=== PATIENT | male | born 1940 | race Caucasian/White ===

== ENCOUNTER 2017-06-10 19:29 | Inpatient (IN) | payer OTHER ==
[~2017-06-10] VITALS: Ht 193 cm; Wt 115.8 kg
[2017-06-10 21:20] LABS: Basophils # (auto) 0.1 uL; Basophils % (auto) 1.3 % (0.0-2.0); Lymphocytes # (auto) 1.2 uL; Monocytes # (auto) 0.6 uL; Red Blood Cells 4.99 10^6/uL (4.5-5.90)
[2017-06-10 21:22] LABS: Eosinophils # (auto) 0.2 uL; Eosinophils % (auto) 2.2 % (0.0-7.0); Hematocrit 39.2 % (41.0-53.0); Hemoglobin 12.8 g/dL (13.5-17.5); Lymphocytes % (auto) 16.9 % (10.0-50.0); Mean Corpuscular Hemoglobin 25.7 pg (28.0-32.0); Mean Corpuscular Hgb Conc. 32.7 g/dL (32.0-36.0); Mean Corpuscular Volume 78.5 fL (80.0-100.0); Neutrophils # (auto) 4.9 uL; Neutrophils % (auto) 70.6 % (37.0-80.0); Platelet Count (auto) 202 10^3/uL (140-450); Red Cell Distribution Width 16.7 % (11.8-14.3); White Blood Cell 6.9 10^3/uL (4.4-10.8)
[2017-06-10 21:26] LABS: INR 1.06 (0.9-1.15); Partial Thromboplastin Time 22.8 sec (22.64-33.71); Prothrombin Time 11.6 sec (9.37-12.3)
[2017-06-10 21:31] LABS: Albumin 3.1 g/dL (3.4-5.0); BUN/Creatinine Ratio 20.9; Bilirubin, Total 0.2 mg/dL (0.2-1.0); Calcium 8.4 mg/dL (8.5-10.1); Potassium 4.5 mmol/L (3.5-5.1)
[2017-06-10] MEDS ORDERED: SODIUM CHLORIDE 0.9% 1,000 ML IV ONE (21:33)
[2017-06-11] VITALS (8 sets, daily range): BP systolic 106–196; BP diastolic 67–100
[2017-06-11] MEDS ORDERED: NITROGLYCERIN 0.4 MG SL TAB SL PRN (00:45)
[2017-06-11] MEDS ORDERED: DEXTROSE (50%) 50ML SYRG IV PRN ×2 (00:45→03:30)
[2017-06-11] MEDS ORDERED: MORPHINE SULF INJ 2 MG/ML SYRINGE 1ML IV PRN (00:45)
[2017-06-11] MEDS ORDERED: PANT1INJ3 PO (03:02)
[2017-06-11] MEDS ORDERED: CARV25TA55 PO (03:02)
[2017-06-11] MEDS ORDERED: ASPI81TA27 PO (03:02)
[2017-06-11] MEDS ORDERED: SIMV-8 PO (03:02)
[2017-06-11] MEDS ORDERED: WARF5TAB71 PO (03:02)
[2017-06-11] MEDS ORDERED: AMIO200T33 PO (03:02)
[2017-06-11] MEDS ORDERED: LOSA100T27 PO (03:02)
[2017-06-11] MEDS ORDERED: GLYB2.5T8 PO (03:02)
[2017-06-11] MEDS: cloNIDine HCL 0.1 MG TAB PO PRN ×2 (04:29→11:59)
[2017-06-11] MEDS ORDERED: ALBUAER3 IN (04:41)
[2017-06-11 06:17] LABS: Hemoglobin 11.1 g/dL (13.5-17.5); Lymphocytes # (auto) 1.3 uL; Monocytes # (auto) 0.7 uL; Neutrophils # (auto) 4.5 uL; Red Cell Distribution Width 16.8 % (11.8-14.3); White Blood Cell 6.7 10^3/uL (4.4-10.8)
[2017-06-11 06:23] LABS: Basophils # (auto) 0 uL; Basophils % (auto) 0.5 % (0.0-2.0); Eosinophils # (auto) 0.2 uL; Eosinophils % (auto) 2.4 % (0.0-7.0); Hematocrit 34.2 % (41.0-53.0); Mean Corpuscular Hemoglobin 25.5 pg (28.0-32.0); Mean Corpuscular Hgb Conc. 32.5 g/dL (32.0-36.0); Mean Corpuscular Volume 78.5 fL (80.0-100.0); Monocytes % (auto) 10.2 % (0.0-12.0); Neutrophils % (auto) 66.9 % (37.0-80.0); Platelet Count (auto) 163 10^3/uL (140-450); Red Blood Cells 4.35 10^6/uL (4.5-5.90)
[2017-06-11] MEDS ORDERED: hydrALAZINE HCL 20 MG/ML VL IV ONE (06:30)
[2017-06-11 06:39] LABS: Cholesterol 230 mg/dL (< 200); HDL Cholesterol 37 mg/dL (40-59); LDL Cholesterol 143 mg/dL (< 100); Triglycerides 325 mg/dL (< 150)
[2017-06-11 06:46] LABS: BUN/Creatinine Ratio 24.9; Calcium 8.2 mg/dL (8.5-10.1); Potassium 4.1 mmol/L (3.5-5.1)
[2017-06-11] MEDS: ACCU-CHEK COMFORT CURVE STRIP VI SCH ×3 (06:49→22:03)
[2017-06-11] MEDS ORDERED: ACCU-CHEK COMFORT CURVE STRIP VI SCH (07:00)
[2017-06-11] MEDS ORDERED: InsuLIN REG 1unit/0.01ml Soln (100units/ml) SC SCH (07:00)
[2017-06-11] MEDS: InsuLIN REG 1unit/0.01ml Soln (100units/ml) SC SCH ×3 (07:16→22:00)
[2017-06-11] MEDS ORDERED: DILTIAZEM HCL 25 MG/5 ML VIAL IV ONE (08:45)
[2017-06-11] MEDS ORDERED: METOPROLOL TARTRATE 25 MG TAB PO SCH (10:00)
[2017-06-11] MEDS: CARVEDILOL 12.5 MG TAB PO SCH ×2 (11:59→21:55)
[2017-06-11] MEDS: PANTOPRAZOLE 40 MG TAB PO SCH (11:59)
[2017-06-11] MEDS: AMIODARONE HCL 200 MG TAB PO SCH (12:02)
[2017-06-11] MEDS: LOSARTAN POTASSIUM 25 MG TAB PO SCH ×2 (12:02→21:53)
[2017-06-11] MEDS ORDERED: PHYTONADIONE (VIT K)10 MG/ML 1ML VIAL SUBCUT ONE (13:00)
[2017-06-11] MEDS: cloNIDine HCL 0.1 MG TAB PO SCH ×3 (13:48→22:53)
[2017-06-11] MEDS ORDERED: ATORVASTATIN 20 MG TAB PO SCH (22:00)
[2017-06-12 04:40] VITALS: BP 127/59
[2017-06-12 05:31] LABS: Basophils # (auto) 0.1 uL; Eosinophils # (auto) 0.1 uL; Lymphocytes # (auto) 1.1 uL; Neutrophils # (auto) 3.4 uL; Platelet Count (auto) 152 10^3/uL (140-450)
[2017-06-12 05:33] LABS: Basophils % (auto) 1.1 % (0.0-2.0); Eosinophils % (auto) 2.4 % (0.0-7.0); Hematocrit 31.1 % (41.0-53.0); Hemoglobin 10.2 g/dL (13.5-17.5); Lymphocytes % (auto) 20.5 % (10.0-50.0); Mean Corpuscular Hemoglobin 25.7 pg (28.0-32.0); Mean Corpuscular Volume 77.8 fL (80.0-100.0); Monocytes # (auto) 0.5 uL; Monocytes % (auto) 9.5 % (0.0-12.0); Neutrophils % (auto) 66.5 % (37.0-80.0); Red Blood Cells 3.99 10^6/uL (4.5-5.90); Red Cell Distribution Width 16.2 % (11.8-14.3); White Blood Cell 5.1 10^3/uL (4.4-10.8)
[2017-06-12] MEDS: ACCU-CHEK COMFORT CURVE STRIP VI SCH ×2 (06:33→11:30)
[2017-06-12] MEDS: InsuLIN REG 1unit/0.01ml Soln (100units/ml) SC SCH ×2 (06:34→11:30)
[2017-06-12 08:00] VITALS: BP 140/63
[2017-06-12 09:00] VITALS: BP 135/78
[2017-06-12] MEDS: CARVEDILOL 12.5 MG TAB PO SCH (10:00)
[2017-06-12] MEDS: PANTOPRAZOLE 40 MG TAB PO SCH (10:28)
[2017-06-12] MEDS: AMIODARONE HCL 200 MG TAB PO SCH (10:29)
[2017-06-12] MEDS: LOSARTAN POTASSIUM 25 MG TAB PO SCH (10:30)
[2017-06-12] MEDS ORDERED: AMLO10TA2 PO (12:47)
[2017-06-12 13:00] VITALS: BP 159/78
[2017-06-12] MEDS: cloNIDine HCL 0.1 MG TAB PO SCH (14:46)
== END 2017-06-12 15:00 | disposition home or self-care (01) | DRG 150 ==
LOC: EDBD 19:29 → ER 19:36 → TELE 19:37 → TELE-WESTW 06-11 01:35
PROVIDERS: ADMIT Nurse Practitioner Family; ATTEND Hospitalist
DX: R04.0 Epistaxis (principal); N17.0 Acute kidney failure with tubular necrosis; D68.32 Hemorrhagic disorder due to extrinsic circulating anticoagulants; I48.2 Chronic atrial fibrillation; E11.22 Type 2 diabetes mellitus with diabetic chronic kidney disease; N18.3 Chronic kidney disease, stage 3 (moderate); E11.9 Type 2 diabetes mellitus without complications; E66.9 Obesity, unspecified; E78.5 Hyperlipidemia, unspecified; I13.10 Hypertensive heart and chronic kidney disease without heart failure, with stage 1 through stage 4 chronic kidney disease, or unspecified chronic kidney disease; I25.10 Atherosclerotic heart disease of native coronary artery without angina pectoris; T45.515A Adverse effect of anticoagulants, initial encounter; Z79.01 Long term (current) use of anticoagulants; Z79.82 Long term (current) use of aspirin; Z79.899 Other long term (current) drug therapy; Y92.89 Other specified places as the place of occurrence of the external cause; Z68.31 Body mass index [BMI] 31.0-31.9, adult
CPT/HCPCS: 36415; 71010; 80048; 80053; 80061; 82962; 83036; 84484; 85025; 85379; 85610; 85730; 96361; 96374; 96375; J1815; J3430

== ENCOUNTER 2019-12-04 10:28 | Inpatient (IN) | payer OTHER, MEDICAID ==
[~2019-12-04] VITALS: Ht 193 cm; Wt 106.1 kg
[~2019-12-04 10:28] MED LIST: ALBUAER3 IN; AMIO200T33 PO; AML5T PO; ASPI325T4 PO; CALC667C5 PO; CARV25TA55 PO; CHOL400L8 PO; DONE10TA40 PO; FURO40TA4 PO; INSLANTI SC; IPRIH IN; PANT1INJ3 PO; SIMV-8 PO; WARF3TAB22 PO
[2019-12-04] MEDS ORDERED: FUROSEMIDE 40 MG/4 ML VIAL IV ONE (10:45)
[2019-12-04] MEDS ORDERED: cefTRIAXone 1GM/50ML D5W 50 ML IV ONE (10:45)
[2019-12-04] MEDS ORDERED: AZITHROMYCIN 500MG/ 250ML 250 ML IV ONE (10:45)
[2019-12-04] MEDS ORDERED: FUROSEMIDE 40 MG/4 ML VIAL ONE (10:46)
[2019-12-04 11:24] LABS: Basophils # (auto) 0.1 10 ^3/uL (0-0.2); Hemoglobin 7.5 g/dL (13.5-17.5); Lymphocytes # (auto) 0.9 10 ^3/uL (0.4-5.4); White Blood Cell 10.3 10^3/uL (4.4-10.8)
[2019-12-04 11:26] LABS: Basophils % (auto) 0.9 % (0.0-2.0); Eosinophils # (auto) 0.1 10 ^3/uL (0-0.8); Eosinophils % (auto) 0.5 % (0.0-7.0); Hematocrit 23.1 % (41.0-53.0); Lymphocytes % (auto) 8.4 % (10.0-50.0); Mean Corpuscular Hemoglobin 26.8 pg (28.0-32.0); Mean Corpuscular Hgb Conc. 32.5 g/dL (32.0-36.0); Mean Corpuscular Volume 82.6 fL (80.0-100.0); Monocytes # (auto) 0.7 10 ^3/uL (0-1.3); Monocytes % (auto) 6.8 % (0.0-12.0); Neutrophils # (auto) 8.6 10 ^3/uL (1.6-8.6); Neutrophils % (auto) 83.4 % (37.0-80.0); Nucleated Red Blood Cells % 0.5 %; Platelet Count (auto) 175 10^3/uL (140-450); Red Cell Distribution Width 19.3 % (11.8-14.3)
[2019-12-04 11:41] LABS: Albumin 2.9 g/dL (3.4-5.0); Calcium 8.7 mg/dL (8.5-10.1); Magnesium 2.7 mg/dL (1.6-2.6); Potassium 4.7 mmol/L (3.5-5.1)
[2019-12-04 11:48] LABS: BUN/Creatinine Ratio 21.4; Bilirubin, Total 0.3 mg/dL (0.2-1.0); CRP High Sensitivity 1.57 mg/dL (< 0.3); Total Protein 7.2 g/dL (6.4-8.2)
[2019-12-04] MEDS ORDERED: FUROSEMIDE 20 MG/2 ML VIAL IV ONE ×2 (14:00→14:30)
[2019-12-04] MEDS ORDERED: NITROGLYCERIN 0.4 MG SL TAB SL PRN (14:15)
[2019-12-04] MEDS ORDERED: MORPHINE SULF INJ 2 MG/ML SYRINGE 1ML IV PRN (14:15)
[2019-12-04] MEDS ORDERED: HEPARIN DRIP/D5W 100UNITS/ML 250 ML IV SCH (14:23)
[2019-12-04] MEDS ORDERED: HEPARIN SODIUM (PORCINE) 5000 UNITS/ML 1ML VIAL IV ONE (15:00)
[2019-12-04 15:36] LABS: INR 2.3 (0.9-1.15); Partial Thromboplastin Time 22.5 sec (23.64-32.05)
[2019-12-04] MEDS ORDERED: HEPARIN SODIUM (PORCINE) 5000 UNITS/ML 1ML VIAL ONE (16:19)
[2019-12-04] MEDS: HEPARIN DRIP/D5W 100UNITS/ML 250 ML IV SCH (16:30)
[2019-12-04 18:00] VITALS: BP 111/69
[2019-12-04] MEDS: FUROSEMIDE 100 MG/10ML VIAL IV SCH (18:00)
[2019-12-04 18:15] VITALS: BP 122/66
[2019-12-04] MEDS ORDERED: DEXTROSE (50%) 50ML SYRG IV PRN (20:15)
[2019-12-04 20:36] LABS: Urine Bacteria NONE SEEN /hpf (None Seen); Urine Blood 1+ /uL (Negative); Urine Hyaline Cast FEW /lpf (0 - 2); Urine Specific Gravity 1.013 (1.001-1.035); Urine WBC <1 /hpf (0 - 3)
[2019-12-04 22:00] VITALS: BP 166/69
[2019-12-04] MEDS ORDERED: ATORVASTATIN 20 MG TAB PO SCH (22:00)
[2019-12-04] MEDS: DONEPEZIL HYDROCHLORIDE 5 MG TAB PO SCH (23:11)
[2019-12-04] MEDS: CARVEDILOL 12.5 MG TAB PO SCH (23:12)
[2019-12-04] MEDS: ATORVASTATIN 20 MG TAB PO SCH (23:12)
[2019-12-04] MEDS: DOXYCYCLINE 100 MG TAB/CAP PO SCH (23:12)
[2019-12-04] MEDS: ACCU-CHEK COMFORT CURVE STRIP VI SCH (23:13)
[2019-12-04] MEDS: InsuLIN REG 1unit/0.01ml Soln (100units/ml) SC SCH (23:18)
[2019-12-04 23:28] LABS: Basophils # (auto) 0.1 10 ^3/uL (0-0.2); Basophils % (auto) 1.4 % (0.0-2.0); Eosinophils # (auto) 0.1 10 ^3/uL (0-0.8); Eosinophils % (auto) 0.7 % (0.0-7.0); Hematocrit 24.1 % (41.0-53.0); Hemoglobin 7.9 g/dL (13.5-17.5); Lymphocytes % (auto) 9.4 % (10.0-50.0); Mean Corpuscular Hemoglobin 26.7 pg (28.0-32.0); Mean Corpuscular Hgb Conc. 32.7 g/dL (32.0-36.0); Mean Corpuscular Volume 81.7 fL (80.0-100.0); Monocytes # (auto) 0.9 10 ^3/uL (0-1.3); Monocytes % (auto) 8.8 % (0.0-12.0); Neutrophils # (auto) 8.3 10 ^3/uL (1.6-8.6); Neutrophils % (auto) 79.7 % (37.0-80.0); Nucleated Red Blood Cells % 0.8 %; Platelet Count (auto) 176 10^3/uL (140-450); Red Blood Cells 2.95 10^6/uL (4.5-5.90); Red Cell Distribution Width 19.3 % (11.8-14.3); White Blood Cell 10.4 10^3/uL (4.4-10.8)
[2019-12-04 23:34] LABS: BUN/Creatinine Ratio 22.5; Calcium 8.3 mg/dL (8.5-10.1); Magnesium 2.7 mg/dL (1.6-2.6); Potassium 4.8 mmol/L (3.5-5.1)
[2019-12-04 23:35] LABS: % Iron Saturation 7.8 % (20-55)
[2019-12-04 23:36] LABS: INR 2.46 (0.9-1.15); Partial Thromboplastin Time 35.9 sec (23.64-32.05)
[2019-12-05] MEDS: ALBUTEROL SULF 2.5 MG/0.5ML(0.5%) NEB SOLN NEB PRN ×2 (00:56→06:37)
[2019-12-05] MEDS: IPRATROPIUM BROM 0.5 MG/2.5ML INH SOL NEB PRN ×2 (00:56→06:37)
[2019-12-05 04:22] VITALS: BP 128/78
[2019-12-05] MEDS: FUROSEMIDE 100 MG/10ML VIAL IV SCH ×2 (06:29→18:15)
[2019-12-05] MEDS: InsuLIN REG 1unit/0.01ml Soln (100units/ml) SC SCH ×4 (06:38→22:50)
[2019-12-05] MEDS: ACCU-CHEK COMFORT CURVE STRIP VI SCH ×4 (07:00→22:50)
[2019-12-05 07:17] LABS: Calcium 8.3 mg/dL (8.5-10.1); Magnesium 2.8 mg/dL (1.6-2.6)
[2019-12-05 07:19] LABS: INR 2.54 (0.9-1.15); Partial Thromboplastin Time 44.7 sec (23.64-32.05)
[2019-12-05 07:20] LABS: Basophils # (auto) 0.1 10 ^3/uL (0-0.2); Basophils % (auto) 0.9 % (0.0-2.0); Eosinophils # (auto) 0.1 10 ^3/uL (0-0.8); Eosinophils % (auto) 0.6 % (0.0-7.0); Hematocrit 23.2 % (41.0-53.0); Hemoglobin 7.7 g/dL (13.5-17.5); Lymphocytes # (auto) 0.7 10 ^3/uL (0.4-5.4); Lymphocytes % (auto) 8.2 % (10.0-50.0); Mean Corpuscular Hemoglobin 27.2 pg (28.0-32.0); Mean Corpuscular Volume 82.4 fL (80.0-100.0); Monocytes # (auto) 0.6 10 ^3/uL (0-1.3); Monocytes % (auto) 7.5 % (0.0-12.0); Neutrophils % (auto) 82.8 % (37.0-80.0); Nucleated Red Blood Cells % 0.5 %; Platelet Count (auto) 148 10^3/uL (140-450); Red Blood Cells 2.82 10^6/uL (4.5-5.90); White Blood Cell 8.5 10^3/uL (4.4-10.8)
[2019-12-05 07:22] LABS: BUN/Creatinine Ratio 23.1
[2019-12-05] MEDS ORDERED: CARVEDILOL 12.5 MG TAB ONE (08:22)
[2019-12-05] MEDS ORDERED: CARVEDILOL 3.125 MG TAB ONE (08:23)
[2019-12-05] MEDS: AMIODARONE HCL 200 MG TAB PO SCH (08:29)
[2019-12-05] MEDS: CARVEDILOL 12.5 MG TAB PO SCH ×2 (08:30→22:46)
[2019-12-05] MEDS: CLOPIDOGREL BISULFATE 75 MG TAB PO SCH (08:30)
[2019-12-05] MEDS: PANTOPRAZOLE 40 MG TAB PO SCH (08:30)
[2019-12-05] MEDS: DOXYCYCLINE 100 MG TAB/CAP PO SCH ×2 (08:30→22:46)
[2019-12-05] MEDS: cefTRIAXone 1GM/50ML D5W 50 ML IV SCH (08:36)
[2019-12-05] MEDS ORDERED: metOLazone 5 MG TAB PO ONE (09:45)
[2019-12-05] MEDS ORDERED: ASPirin 81 mg TAB PO SCH (10:00)
[2019-12-05] MEDS: IRON SUCROSE COMPLEX 200 MG in SODIUM CHL 0.9% 100 ML IV SCH (10:28)
[2019-12-05] MEDS ORDERED: INSLANTI SC (11:22)
[2019-12-05] MEDS ORDERED: DOCU-94 PO (11:22)
[2019-12-05] MEDS ORDERED: FERR-7 PO (11:22)
[2019-12-05] MEDS ORDERED: LORA-622 PO (11:22)
[2019-12-05] MEDS ORDERED: HYDR-5139 PO (11:22)
[2019-12-05] MEDS ORDERED: FURO40TA4 PO (11:22)
[2019-12-05] MEDS ORDERED: METO-6 PO (11:22)
[2019-12-05] MEDS ORDERED: PANT-36 PO (11:22)
[2019-12-05] MEDS: SEVELAMER 800 MG TAB PO SCH ×2 (12:00→18:15)
[2019-12-05 12:56] LABS: INR 2.64 (0.9-1.15); Partial Thromboplastin Time 66.3 sec (23.64-32.05)
[2019-12-05] MEDS: HEPARIN DRIP/D5W 100UNITS/ML 250 ML IV SCH (15:18)
[2019-12-05] MEDS ORDERED: VANCOMYCIN 750mg/250ml 250 ML IV ONE (16:00)
[2019-12-05 18:47] LABS: Hematocrit 24.5 % (41.0-53.0); Hemoglobin 7.9 g/dL (13.5-17.5)
[2019-12-05 19:03] LABS: INR 2.48 (0.9-1.15)
[2019-12-05] MEDS: DONEPEZIL HYDROCHLORIDE 5 MG TAB PO SCH (22:45)
[2019-12-05] MEDS: ATORVASTATIN 20 MG TAB PO SCH (22:46)
[2019-12-06 01:32] LABS: INR 2.55 (0.9-1.15)
[2019-12-06 01:39] LABS: Basophils # (auto) 0.1 10 ^3/uL (0-0.2); Mean Corpuscular Hemoglobin 26.8 pg (28.0-32.0); Monocytes # (auto) 0.8 10 ^3/uL (0-1.3); Red Blood Cells 2.71 10^6/uL (4.5-5.90)
[2019-12-06 01:40] LABS: Eosinophils # (auto) 0.1 10 ^3/uL (0-0.8); Eosinophils % (auto) 1.5 % (0.0-7.0); Hematocrit 22.3 % (41.0-53.0); Hemoglobin 7.2 g/dL (13.5-17.5); Lymphocytes # (auto) 1.2 10 ^3/uL (0.4-5.4); Lymphocytes % (auto) 12.8 % (10.0-50.0); Mean Corpuscular Hgb Conc. 32.6 g/dL (32.0-36.0); Mean Corpuscular Volume 82.2 fL (80.0-100.0); Monocytes % (auto) 8.8 % (0.0-12.0); Neutrophils # (auto) 6.9 10 ^3/uL (1.6-8.6); Neutrophils % (auto) 75.9 % (37.0-80.0); Nucleated Red Blood Cells % 1.2 %; Platelet Count (auto) 164 10^3/uL (140-450); White Blood Cell 9.1 10^3/uL (4.4-10.8)
[2019-12-06 01:44] LABS: BUN/Creatinine Ratio 21.5; Calcium 7.6 mg/dL (8.5-10.1); Phosphorus 6.5 mg/dL (2.5-4.90); Potassium 4.4 mmol/L (3.5-5.1)
[2019-12-06] MEDS ORDERED: HYDROcodone-ACET 5/325MG TAB PO ONE (05:30)
[2019-12-06] MEDS: FUROSEMIDE 100 MG/10ML VIAL IV SCH ×2 (06:00→17:31)
[2019-12-06] MEDS: ACCU-CHEK COMFORT CURVE STRIP VI SCH ×4 (07:04→22:00)
[2019-12-06] MEDS: InsuLIN REG 1unit/0.01ml Soln (100units/ml) SC SCH ×4 (07:07→22:00)
[2019-12-06 07:19] LABS: INR 2.5 (0.9-1.15)
[2019-12-06] MEDS: SEVELAMER 800 MG TAB PO SCH ×3 (08:00→18:21)
[2019-12-06] MEDS ORDERED: MIDODRINE HCL 10 MG TAB PO ONE (08:30)
[2019-12-06] MEDS ORDERED: SODIUM CHL 0.9% 1000 ML BAG XX ONE (08:30)
[2019-12-06] MEDS ORDERED: ALBUMIN 25% 100 ML IV ONE (08:30)
[2019-12-06] MEDS: PANTOPRAZOLE 40 MG TAB PO SCH (11:48)
[2019-12-06] MEDS: AMIODARONE HCL 200 MG TAB PO SCH (11:48)
[2019-12-06] MEDS: DOXYCYCLINE 100 MG TAB/CAP PO SCH ×2 (11:48→22:00)
[2019-12-06] MEDS: cefTRIAXone 1GM/50ML D5W 50 ML IV SCH (11:48)
[2019-12-06] MEDS: CLOPIDOGREL BISULFATE 75 MG TAB PO SCH (11:49)
[2019-12-06] MEDS: CARVEDILOL 12.5 MG TAB PO SCH ×2 (11:49→22:00)
[2019-12-06] MEDS: IRON SUCROSE COMPLEX 200 MG in SODIUM CHL 0.9% 100 ML IV SCH (12:54)
[2019-12-06] MEDS: NOREPINEPHRINE 8 MG/250ML KIT 250 ML IV ONE ×2 (14:27→14:31)
[2019-12-06] MEDS: NOREPINEPHRINE 8 MG/250ML KIT 250 ML IV SCH (14:37)
--- NOTE | 2019-12-06 18:30 | NUR ---
Respiratory note: PT ASSESSED FOR PRN MED NEB TX. HR 64, RR 17, SPO2 100% ON 5L OXYMIZER. NO S/S OF ANY RESPIRATORY DISTRESS NOTED. ADVISED PT TO CALL IF TX IS NEEDED.
[2019-12-06] MEDS ORDERED: EPOETIN ALFA 10,000 UNIT/1 ML VIAL SC ONE (21:00)
[2019-12-06] MEDS: ATORVASTATIN 20 MG TAB PO SCH (22:00)
[2019-12-06] MEDS: DONEPEZIL HYDROCHLORIDE 5 MG TAB PO SCH (22:00)
[2019-12-07] MEDS: FUROSEMIDE 100 MG/10ML VIAL IV SCH ×2 (06:00→18:53)
--- NOTE | 2019-12-07 06:05 | NUR ---
Respiratory note: Assessed pt for prn medneb tx. HR 59, RR 14, SPO2 97% on 6lpm oxymizer. Breath sounds clear/dim. Pt resting comfortably in bed, no s/s of respiratory distress noted. Medneb tx not indicated at this time.
[2019-12-07 06:25] LABS: BUN/Creatinine Ratio 20.3; Calcium 7.6 mg/dL (8.5-10.1); Magnesium 2.4 mg/dL (1.6-2.6); Potassium 4.1 mmol/L (3.5-5.1)
[2019-12-07 06:43] LABS: Basophils # (auto) 0.1 10 ^3/uL (0-0.2); Eosinophils # (auto) 0.1 10 ^3/uL (0-0.8); Eosinophils % (auto) 1.8 % (0.0-7.0); Hematocrit 22.5 % (41.0-53.0); Hemoglobin 7.1 g/dL (13.5-17.5); Lymphocytes # (auto) 0.8 10 ^3/uL (0.4-5.4); Lymphocytes % (auto) 10.6 % (10.0-50.0); Mean Corpuscular Hemoglobin 25.8 pg (28.0-32.0); Mean Corpuscular Hgb Conc. 31.4 g/dL (32.0-36.0); Mean Corpuscular Volume 81.9 fL (80.0-100.0); Monocytes # (auto) 0.8 10 ^3/uL (0-1.3); Monocytes % (auto) 10.6 % (0.0-12.0); Neutrophils # (auto) 5.6 10 ^3/uL (1.6-8.6); Platelet Count (auto) 157 10^3/uL (140-450); Red Blood Cells 2.75 10^6/uL (4.5-5.90); Red Cell Distribution Width 18.8 % (11.8-14.3); White Blood Cell 7.3 10^3/uL (4.4-10.8)
[2019-12-07] MEDS: ACCU-CHEK COMFORT CURVE STRIP VI SCH ×4 (07:00→22:29)
[2019-12-07] MEDS: InsuLIN REG 1unit/0.01ml Soln (100units/ml) SC SCH ×4 (07:00→22:43)
[2019-12-07] MEDS ORDERED: SODIUM CHL 0.9% 1000 ML BAG XX ONE (08:15)
[2019-12-07] MEDS ORDERED: ALBUMIN 25% 100 ML IV ONE ×2 (08:15)
[2019-12-07] MEDS: SEVELAMER 800 MG TAB PO SCH ×3 (09:03→18:38)
[2019-12-07] MEDS: AMIODARONE HCL 200 MG TAB PO SCH (10:14)
[2019-12-07] MEDS: cefTRIAXone 1GM/50ML D5W 50 ML IV SCH (10:14)
[2019-12-07] MEDS: CARVEDILOL 12.5 MG TAB PO SCH ×2 (10:14→22:00)
[2019-12-07] MEDS: PANTOPRAZOLE 40 MG TAB PO SCH (10:15)
[2019-12-07] MEDS: CLOPIDOGREL BISULFATE 75 MG TAB PO SCH (10:15)
[2019-12-07] MEDS: DOXYCYCLINE 100 MG TAB/CAP PO SCH ×2 (10:15→22:29)
[2019-12-07 10:46] LABS: Hepatitis A Ab IgM Negative; Hepatitis B Core IgM Negative; Hepatitis B Surface Antigen Negative (Negative)
[2019-12-07 10:48] LABS: Hepatitis C Antibody Positive (Negative)
--- NOTE | 2019-12-07 11:28 | NUR ---
Assessment Patient is a 79-year-old male who is alert and oriented. Prior to admission patient lived home with his and functioned independently. Patient informed me he has home oxygen, walker and a wheelchair for home use. Per patient he will return home to his prior living arrangements post discharge and will transport him home. Advised patient there is a social service consult for outpatient dialysis. Informed patient clinical information will be faxed to [facility]. Informed Patient he has the right to participate in all discharge planning. Patient verbalized understanding and agreed to discharge plan. Faxed clinical information to [facility] dialysis on 12/06/2019. Pending on Hepatitis B. Faxed clinical information to [facility] and DANIEL Sunshine was informed of order for dialysis. Addendum: 12/07/19 at 1130 by JAMES ECHEVARRIA Amended: Links added.
[2019-12-07] MEDS ORDERED: MIDODRINE HCL 10 MG TAB PO ONE (14:15)
[2019-12-07] MEDS: IRON SUCROSE COMPLEX 200 MG in SODIUM CHL 0.9% 100 ML IV SCH (15:44)
[2019-12-07] MEDS: NOREPINEPHRINE 8 MG/250ML KIT 250 ML IV SCH (15:44)
[2019-12-07 19:31] VITALS: BP 116/52
[2019-12-07 20:00] VITALS: BP 105/66
[2019-12-07] MEDS ORDERED: EPOETIN ALFA 10,000 UNIT/1 ML VIAL SC ONE (21:00)
[2019-12-07] MEDS: ATORVASTATIN 20 MG TAB PO SCH (22:29)
[2019-12-07] MEDS: DONEPEZIL HYDROCHLORIDE 5 MG TAB PO SCH (22:29)
[2019-12-08] MEDS: FUROSEMIDE 100 MG/10ML VIAL IV SCH ×3 (06:00→18:00)
--- NOTE | 2019-12-08 06:45 | NUR ---
Respiratory note: PT IS AWAKE, AND ALERT. NO RESPIRATORY DISTRESS NOTED. SPO2 97% ON 3L NC, HR 62, RR 16, BS CLEAR/DIMINISHED BILATERALLY. PRN MEDNEB TX NOT INDICATED. PT INFORMED TO HAVE RN PAGE RESPIRATORY IF INCREASE WOB, SOB, OR WHEEZING OCCURS.
[2019-12-08] MEDS: ACCU-CHEK COMFORT CURVE STRIP VI SCH ×4 (06:52→22:18)
[2019-12-08] MEDS: InsuLIN REG 1unit/0.01ml Soln (100units/ml) SC SCH ×4 (06:53→22:18)
[2019-12-08 07:06] LABS: Potassium 4.1 mmol/L (3.5-5.1)
[2019-12-08 07:07] LABS: BUN/Creatinine Ratio 16.6; Calcium 7.5 mg/dL (8.5-10.1)
[2019-12-08] MEDS: SEVELAMER 800 MG TAB PO SCH ×3 (08:12→18:15)
[2019-12-08] MEDS ORDERED: HEPARIN 1,000 UNITS/ml 1ML VIAL IV ONE (09:15)
[2019-12-08] MEDS ORDERED: ALBUMIN 25% 50 ML IV ONE (09:15)
[2019-12-08] MEDS ORDERED: ALBUMIN 25% 50 ML IV PRN (09:15)
[2019-12-08] MEDS: AMIODARONE HCL 200 MG TAB PO SCH (11:07)
[2019-12-08] MEDS: PANTOPRAZOLE 40 MG TAB PO SCH (11:08)
[2019-12-08] MEDS: CLOPIDOGREL BISULFATE 75 MG TAB PO SCH (11:08)
[2019-12-08] MEDS: CARVEDILOL 12.5 MG TAB PO SCH ×2 (11:18→22:00)
[2019-12-08] MEDS: cefTRIAXone 1GM/50ML D5W 50 ML IV SCH (11:31)
[2019-12-08] MEDS: DOXYCYCLINE 100 MG TAB/CAP PO SCH ×2 (11:52→22:01)
[2019-12-08] MEDS: SODIUM FERR GLUC 125 MG in NS 100 ML IV SCH (12:38)
[2019-12-08] MEDS ORDERED: SODIUM FERR GLUC 125 MG in NS 100 ML IV SCH (15:00)
[2019-12-08] MEDS ORDERED: IRON SUCROSE COMPLEX 200 MG in SODIUM CHL 0.9% 100 ML IV SCH (15:00)
[2019-12-08] MEDS ORDERED: EPOETIN ALFA 10,000 UNIT/1 ML VIAL SC ONE ×2 (15:00→21:00)
--- NOTE | 2019-12-08 15:37 | NUR ---
D/C Planning Per SS consult for home health safety evaluation. Faxed clinical information with Hepatitis B results to [facility] and [facility] this morning. Faxed clinical information to [facility]. Per Pennie with [facility] health patient has been accepted and service to start within 24-48hrs upon d/c day. Placed follow up call to DANIEL Sunshine with [facility] and left her a message regarding results and accepting home health agency. Placed called to [facility] spoke to Prachi. Per Prachi patient Chair Time will be on Wednesday, and Wednesday at 10:30am at [facility] [id number], [facility] ). Patient first treatment will be on 12-12-19 at 10:00am for intake. BRANDIE Pagan from ER was informed regarding discharge plan.
[2019-12-08 15:53] LABS: Basophils # (auto) 0.1 10 ^3/uL (0-0.2); Eosinophils # (auto) 0.1 10 ^3/uL (0-0.8); Eosinophils % (auto) 1.3 % (0.0-7.0); Hemoglobin 7.8 g/dL (13.5-17.5); Lymphocytes # (auto) 0.6 10 ^3/uL (0.4-5.4); Mean Corpuscular Volume 84.7 fL (80.0-100.0); Monocytes # (auto) 0.7 10 ^3/uL (0-1.3); Neutrophils # (auto) 6.4 10 ^3/uL (1.6-8.6)
[2019-12-08 15:55] LABS: Basophils % (auto) 0.9 % (0.0-2.0); Hematocrit 24.5 % (41.0-53.0); Lymphocytes % (auto) 7.5 % (10.0-50.0); Mean Corpuscular Hemoglobin 27.1 pg (28.0-32.0); Neutrophils % (auto) 81.3 % (37.0-80.0); Nucleated Red Blood Cells % 0.5 %; Platelet Count (auto) 153 10^3/uL (140-450); Red Blood Cells 2.89 10^6/uL (4.5-5.90); Red Cell Distribution Width 19.3 % (11.8-14.3); White Blood Cell 7.8 10^3/uL (4.4-10.8)
--- NOTE | 2019-12-08 18:28 | NUR ---
Respiratory note: ASSESSED PT FOR PRN MED NEB TX. PT IS CURRENTLY ON 3 L/M NC: HR 67, RR 18, SPO2 97%. PT SHOWS NO S/S OF SOB OR RESPIRATORY DISTRESS. MED NEB TX NOT INDICATED AT THIS TIME. WILL CONTINUE TO MONITOR
[2019-12-08 20:00] VITALS: BP 111/69
--- NOTE | 2019-12-08 20:30 | NUR ---
Telemetry admit from ER RHIANNON DELAROSA admitted to Telemetry unit after SBAR received. Patient oriented to Dariela Diallo RN primary RN, unit, room, bed, and unit policies regarding patient care and visiting hours. Patient now on continuous telemetry monitoring, tele box # [id number] and telemetry reading on arrival to unit is SR. Patient placed on bedside oxygen at 3 Lpm/NC, weighed by bedscale and encouraged to call if they need something. All questions and concerns addressed, patient verbalized understanding, will continue to monitor Note: []
[2019-12-08 22:00] VITALS: BP 111/69
[2019-12-08] MEDS: DONEPEZIL HYDROCHLORIDE 5 MG TAB PO SCH (22:01)
[2019-12-08] MEDS: ATORVASTATIN 20 MG TAB PO SCH (22:02)
--- NOTE | 2019-12-09 05:19 | NUR ---
Noted diabetic wound on left 5th toe, dry and blackened present upon admission. Pictures taken for reference, wound consult in place.
[2019-12-09 05:30] VITALS: BP 121/86
[2019-12-09] MEDS: FUROSEMIDE 100 MG/10ML VIAL IV SCH ×2 (05:35→17:48)
[2019-12-09] MEDS: InsuLIN REG 1unit/0.01ml Soln (100units/ml) SC SCH ×4 (06:17→22:33)
[2019-12-09] MEDS: ACCU-CHEK COMFORT CURVE STRIP VI SCH ×4 (06:17→22:31)
[2019-12-09 06:50] LABS: Albumin 3.1 g/dL (3.4-5.0); BUN/Creatinine Ratio 15.9; Calcium 7.3 mg/dL (8.5-10.1); Potassium 3.8 mmol/L (3.5-5.1)
[2019-12-09 07:03] LABS: Bilirubin, Total 0.4 mg/dL (0.2-1.0); Total Protein 6.8 g/dL (6.4-8.2)
--- NOTE | 2019-12-09 07:15 | NUR ---
RT NOTE: NO TX INDICATED AT THIS TIME. NO SIGNS OF RESPIRATORY DISTRESS. LUNG SOUNDS CLEAR/DIMINISHED T/O. ON 3L NC SPO2 98 HR 60 RR 16. PT AWARE TO PAGE FOR RESPIRATORY IF NEED FOR TX ARISES. WILL CONTINUE TO MONITOR.
[2019-12-09 09:24] VITALS: BP 145/71
[2019-12-09] MEDS: SEVELAMER 800 MG TAB PO SCH ×3 (10:05→17:49)
[2019-12-09] MEDS: B-COMPLEX W/ C & FOLIC ACID(NEPHROVITE TAB) PO SCH (10:06)
[2019-12-09] MEDS: PANTOPRAZOLE 40 MG TAB PO SCH (10:07)
[2019-12-09] MEDS: CARVEDILOL 12.5 MG TAB PO SCH ×2 (10:07→21:33)
[2019-12-09] MEDS: DOXYCYCLINE 100 MG TAB/CAP PO SCH ×2 (10:07→21:43)
[2019-12-09] MEDS: AMIODARONE HCL 200 MG TAB PO SCH (10:08)
[2019-12-09] MEDS: cefTRIAXone 1GM/50ML D5W 50 ML IV SCH (10:09)
--- NOTE | 2019-12-09 11:55 | NUR ---
WOUND CARE NOTE: WOUND CONSULT ORDERED FOR PATIENT FOR DFU TO LEFT # 5 TOE. PATIENT ADMITTED TO [facility] WITH DIAGNOSIS OF NSTEMI, ACUTE CHF. HE HAS HISTORY WITH DM. CURRENT IRIS SCORE IS 17. SKIN/WOUND CARE PLAN IMPLEMENTED. PATIENT HAS SMALL DFU/NEUROPATHIC ULCER COVERED WITH HARD BLACK STABLE ESCHAR TO DORSAL # 5 TOE ON LEFT FOOT. NO NEED FOR DRESSINGS NEEDED. PATIENT SHOULD OBTAIN A REFERRAL TO SEE A CASING COOKER THROUGH HIS [facility] AN OUT PATIENT. NO WOUND CARE MONITORING NEEDED AT THIS TIME.
[2019-12-09 13:00] VITALS: BP 125/71
--- NOTE | 2019-12-09 13:14 | NUR ---
CALLED LAB FOR STAT BLOOD DRAW, LAB REPORTS THEY ARE BACKED UP BUT WILL NOTIFY TIE SAWYER. DR PRICE SAW PATIENT AND DISCUSSED POC. REPORTS TO KEEP NG TUBE, AND KEEP CLAMPED FOR NOW UNTIL SWALLOW EVAL DONE. HE REPORTS THE GASTRIC DRAINAGE IN CANISTER IS BILE, NOT BLOOD. Addendum: 12/09/19 at 1321 by JAC JORGENSEN RN WRONG PATIENT
[2019-12-09] MEDS ORDERED: ALUM & MAG HYDROX-SIMETH LIQ(MAALOX) 30 ML PO PRN (13:30)
--- NOTE | 2019-12-09 13:50 | NUR ---
Tele called and reported pt hr in the 50's. spoke with Dr Cordero, notified MD. reports Coreg can be held and to interrogate pacemaker, and new orders for labs.
--- NOTE | 2019-12-09 14:02 | NUR ---
SPOKE WITH PATIENT, HE REPORTS HE DOES NOT HAVE HIS PACEMAKER CARD OR INFO. HE REPORTS IT WAS PUT IN 6-7 YRS AGO IN [place]. HE REPORTS TO CALL DR PALMER WHO IS HIS COVERED BUCKLE ASSEMBLER. CALLED DR PALMER'S OFFICE, PAGED DR PALMER TO NOTIFY MD PATIENT MAY NEED PACEMAKER INTERROGATED.
--- NOTE | 2019-12-09 14:17 | NUR ---
DR WAHL CALLED BACK FOR DR PALMER. NOTIFIED PT HR HAS GONE INTO THE 50'S AND PACEMAKER IS NOT PACING. AWARE. MD REPORTS TO HAVE PACEMAKER INTERROGATED IF HR DROPS BELOW 50.
[2019-12-09] MEDS: SODIUM FERR GLUC 125 MG in NS 100 ML IV SCH (16:38)
[2019-12-09 16:58] VITALS: BP 109/74
[2019-12-09] MEDS: ATORVASTATIN 20 MG TAB PO SCH (21:43)
[2019-12-09] MEDS: DONEPEZIL HYDROCHLORIDE 5 MG TAB PO SCH (21:43)
[2019-12-09 22:00] VITALS: BP 135/72
[2019-12-10 05:00] VITALS: BP 127/65
[2019-12-10 06:21] LABS: Basophils # (auto) 0.1 10 ^3/uL (0-0.2); Eosinophils # (auto) 0.2 10 ^3/uL (0-0.8); Monocytes # (auto) 0.8 10 ^3/uL (0-1.3); Neutrophils # (auto) 4.8 10 ^3/uL (1.6-8.6)
[2019-12-10 06:24] LABS: Basophils % (auto) 0.9 % (0.0-2.0); Eosinophils % (auto) 2.4 % (0.0-7.0); Hematocrit 24.6 % (41.0-53.0); Lymphocytes # (auto) 0.8 10 ^3/uL (0.4-5.4); Lymphocytes % (auto) 12.4 % (10.0-50.0); Mean Corpuscular Hemoglobin 27.6 pg (28.0-32.0); Mean Corpuscular Hgb Conc. 32.7 g/dL (32.0-36.0); Mean Corpuscular Volume 84.5 fL (80.0-100.0); Monocytes % (auto) 11.4 % (0.0-12.0); Neutrophils % (auto) 72.9 % (37.0-80.0); Nucleated Red Blood Cells % 0.3 %; Platelet Count (auto) 162 10^3/uL (140-450); Red Blood Cells 2.91 10^6/uL (4.5-5.90); White Blood Cell 6.6 10^3/uL (4.4-10.8)
[2019-12-10] MEDS: FUROSEMIDE 100 MG/10ML VIAL IV SCH ×3 (06:42→11:21)
[2019-12-10] MEDS: ACCU-CHEK COMFORT CURVE STRIP VI SCH ×4 (06:56→21:55)
[2019-12-10] MEDS: InsuLIN REG 1unit/0.01ml Soln (100units/ml) SC SCH ×4 (06:56→22:22)
[2019-12-10 07:06] LABS: Potassium 3.6 mmol/L (3.5-5.1)
[2019-12-10 07:19] LABS: Albumin 3.3 g/dL (3.4-5.0); BUN/Creatinine Ratio 17.2; Bilirubin, Total 0.2 mg/dL (0.2-1.0); Calcium 8.3 mg/dL (8.5-10.1); Magnesium 2.3 mg/dL (1.6-2.6); Total Protein 6.9 g/dL (6.4-8.2)
--- NOTE | 2019-12-10 07:45 | NUR ---
IV insertion IV access obtained, via clean sterile technique by inserting 22 gauge catheter at left wrist after 2 attempts. IV secured properly. No trauma to site. Patient tolerated well.
[2019-12-10 09:00] VITALS: BP 107/44
[2019-12-10] MEDS: CARVEDILOL 12.5 MG TAB PO SCH ×2 (10:00→21:43)
[2019-12-10] MEDS: DOXYCYCLINE 100 MG TAB/CAP PO SCH ×2 (11:15→21:55)
[2019-12-10] MEDS: SEVELAMER 800 MG TAB PO SCH ×3 (11:15→17:01)
[2019-12-10] MEDS: B-COMPLEX W/ C & FOLIC ACID(NEPHROVITE TAB) PO SCH (11:16)
[2019-12-10] MEDS: PANTOPRAZOLE 40 MG TAB PO SCH (11:16)
[2019-12-10] MEDS: AMIODARONE HCL 200 MG TAB PO SCH (11:17)
[2019-12-10] MEDS: SODIUM FERR GLUC 125 MG in NS 100 ML IV SCH (11:38)
[2019-12-10 13:00] VITALS: BP 127/55
--- NOTE | 2019-12-10 14:26 | NUR ---
Nutrition Assessment Note please see attached link for complete assessment Est. Energy Needs IBW 89 [id number] kcal (30-33 kcal/kg BW), Est. Protein Needs: 106-124 gms/day (1.2-1.4gms/kg BW r/t pt on HD). Will continue to monitor and reassess prn. Addendum: 12/10/19 at [address] Amended: Links added.
[2019-12-10 17:00] VITALS: BP 109/58
--- NOTE | 2019-12-10 18:14 | NUR ---
Called lab for new pt, ptt for procedure tomorrow. Lab reports they will draw. ECG done and placed in chart. Checklist almost complete and placed in chart.
[2019-12-10 18:49] LABS: INR 1.2 (0.9-1.15); Partial Thromboplastin Time 30.3 sec (23.64-32.05)
[2019-12-10 19:37] VITALS: BP 109/58
--- NOTE | 2019-12-10 21:36 | NUR ---
Respiratory note: NO TX INDICATED AT THIS TIME. NO SIGNS OF RESPIRATORY DISTRESS. LUNG SOUNDS CLEAR/DIMINISHED T/O. ON 3L NC SPO2 95 HR 66 RR 18. PT AWARE TO PAGE FOR RESPIRATORY IF NEED FOR TX ARISES. WILL CONTINUE TO MONITOR.
[2019-12-10] MEDS: DONEPEZIL HYDROCHLORIDE 5 MG TAB PO SCH (21:54)
[2019-12-10] MEDS: ATORVASTATIN 20 MG TAB PO SCH (21:54)
[2019-12-10 22:00] VITALS: BP 109/62
[2019-12-11 05:00] VITALS: BP 124/58
[2019-12-11 06:33] LABS: Potassium 3.7 mmol/L (3.5-5.1)
[2019-12-11 06:39] LABS: Albumin 3.3 g/dL (3.4-5.0); Bilirubin, Total 0.3 mg/dL (0.2-1.0); Calcium 8.1 mg/dL (8.5-10.1); Total Protein 7.3 g/dL (6.4-8.2)
[2019-12-11] MEDS: ACCU-CHEK COMFORT CURVE STRIP VI SCH ×4 (06:51→22:31)
[2019-12-11] MEDS: InsuLIN REG 1unit/0.01ml Soln (100units/ml) SC SCH ×3 (06:51→17:00)
[2019-12-11] MEDS ORDERED: SODIUM CHL 0.9% 1000 ML BAG XX ONE (07:00)
--- NOTE | 2019-12-11 07:20 | NUR ---
PT HAS CRITICAL BUN OF 85, WILL NOTIFY MD. PT RESTING IN BED, NO DISTRESS NOTED. PT REPORTS NO PAIN AT THIS TIME. PT NOTIFIED TO NOT EAT UNTIL AFTER PROCEDURE, PT AWARE.
--- NOTE | 2019-12-11 08:07 | NUR ---
CALLED POLICE OR PATROL PARK OFFICER, THEY REPORT PT SCHEDULED TO GET NEW DIALYSIS CATHETER 12/13/19.
--- NOTE | 2019-12-11 08:10 | NUR ---
CALLED DR ESPINOZA AND LEFT MESSAGE NOTIFYING TUNNELED DIALYSIS CATHETER RESCHEDULED FOR December AND PT HAS CRITICAL BUN OF 85. AWAITING CALL BACK.
[2019-12-11] MEDS: DOXYCYCLINE 100 MG TAB/CAP PO SCH ×2 (08:35→22:30)
[2019-12-11] MEDS: SEVELAMER 800 MG TAB PO SCH ×3 (08:35→18:00)
[2019-12-11] MEDS: PANTOPRAZOLE 40 MG TAB PO SCH (08:36)
[2019-12-11] MEDS: B-COMPLEX W/ C & FOLIC ACID(NEPHROVITE TAB) PO SCH (08:36)
[2019-12-11] MEDS: FUROSEMIDE 100 MG/10ML VIAL IV SCH (08:37)
[2019-12-11] MEDS: AMIODARONE HCL 200 MG TAB PO SCH (08:37)
[2019-12-11] MEDS: CARVEDILOL 12.5 MG TAB PO SCH ×2 (08:38→22:31)
[2019-12-11 08:53] VITALS: BP 131/73
--- NOTE | 2019-12-11 10:45 | NUR ---
Respiratory note: PRN MEDNEB ASSESSMENT. PT FOUND ON 3 LPM, HR-81 , RR-18, SP02 96%. B/S ARE CLEAR. PT IS IN NO DISTRESS AT THIS TIME. NO TREATMENT INDICATED. INFORMED PT TO HAVE RT PAGED IF BECOMES SOB.
[2019-12-11 11:04] LABS: Hepatitis A Ab IgM Negative; Hepatitis B Core IgM Negative
--- NOTE | 2019-12-11 11:04 | NUR ---
SPOKE WITH DR IRVING AT NURSING STATION, NOTIFIED HIM PT PROCEDURE IS NOW IN 12/12 AND PT BUN LEVEL IS 85, MD AWARE, NO NEW ORDERS.
[2019-12-11 11:07] LABS: Hepatitis B Surface Antigen Negative (Negative); Hepatitis C Antibody Positive (Negative)
--- NOTE | 2019-12-11 12:17 | NUR ---
Respiratory note: PRN MEDNEB D'C. PT HAS NOT NEEDED FOR 6 DAYS.
[2019-12-11] MEDS: SODIUM FERR GLUC 125 MG in NS 100 ML IV SCH (12:30)
[2019-12-11 13:03] VITALS: BP 139/81
--- NOTE | 2019-12-11 13:56 | NUR ---
Called and left message for Dr Rebolledo at his office. Left message notifying pt pacemaker may need to be interrogated, and requested call back.
--- NOTE | 2019-12-11 14:47 | NUR ---
Pt has not had dialysis yet. Spoke with [facility], Genoveva reports she will page dialysis nurse and dialysis nurse will call back with an ETA.
--- NOTE | 2019-12-11 15:07 | NUR ---
GRAPHIC ART TECHNICIAN REPORTS DIALYSIS NURSE IS HERE IN HOSPITAL AND WILL DIALYZE PT NEXT.
[2019-12-11 16:40] VITALS: BP 124/69
--- NOTE | 2019-12-11 17:49 | NUR ---
Spoke with Dr Rebolledo at nursing station, reported pt hr in 50's and pacemaker does not seem to be firing, aware. Dr Rebolledo saw patient, patient receiving dialysis. Dr Rebolledo asked pt if he could do a LHC tomorrow, pt agreed. Dr Rebolledo reports he will call and notify pt . Will continue to monitor.
[2019-12-11] MEDS ORDERED: EPOETIN ALFA 10,000 UNIT/1 ML VIAL SC ONE (21:00)
[2019-12-11] MEDS: DONEPEZIL HYDROCHLORIDE 5 MG TAB PO SCH (22:30)
[2019-12-11] MEDS: ATORVASTATIN 20 MG TAB PO SCH (22:30)
[2019-12-11 22:57] VITALS: BP 115/57
--- NOTE | 2019-12-12 | NUR ---
NPO post midnight for L heart cath in Am. Patient verbalized understanding.
[2019-12-12] MEDS: InsuLIN REG 1unit/0.01ml Soln (100units/ml) SC SCH ×5 (00:26→21:54)
[2019-12-12 05:15] VITALS: BP 124/58
[2019-12-12 05:39] LABS: Albumin 3.1 g/dL (3.4-5.0); Potassium 3.6 mmol/L (3.5-5.1)
[2019-12-12 05:43] LABS: BUN/Creatinine Ratio 15.4; Bilirubin, Total 0.3 mg/dL (0.2-1.0); Total Protein 6.8 g/dL (6.4-8.2)
[2019-12-12] MEDS: ACCU-CHEK COMFORT CURVE STRIP VI SCH ×4 (06:16→21:54)
--- NOTE | 2019-12-12 07:15 | NUR ---
PT OFF UNIT TO MOTION GRAPHICS DESIGNER FOR LEFT HEART CATH.
[2019-12-12] MEDS ORDERED: IODIXANOL 320MG/ML 100ML BTL IV ONE ×2 (07:36→08:55)
[2019-12-12 08:00] VITALS: BP 129/68
[2019-12-12] MEDS: SEVELAMER 800 MG TAB PO SCH ×2 (08:00→14:21)
[2019-12-12] MEDS ORDERED: LIDOCAINE 2%HCL (LOCAL ANESTH.) INJ 20ML MDV ONE (08:23)
[2019-12-12] MEDS ORDERED: ANGIOMAX 250 MG VIAL IV ONE (08:52)
[2019-12-12 08:53] VITALS: BP 125/69
[2019-12-12] MEDS ORDERED: VERAPAMIL 2.5MG/ML INJ 2ML VIAL IV ONE (08:53)
[2019-12-12] MEDS ORDERED: SODIUM CHL 0.9% 50 ML ONE (08:53)
[2019-12-12] MEDS ORDERED: fentaNYL CITRATE 100 MCG/2 ML VL ONE (08:53)
[2019-12-12] MEDS ORDERED: MIDAZOLAM HCL 1MG/1ML-2 ML VIAL ONE (08:53)
[2019-12-12] MEDS ORDERED: TICAGRELOR 90 MG TAB ONE (09:44)
[2019-12-12] MEDS ORDERED: ASPirin 325 MG TAB ONE (09:45)
[2019-12-12] MEDS ORDERED: CLOPIDOGREL BISULFATE 75 MG TAB PO SCH (10:00)
--- NOTE | 2019-12-12 10:50 | NUR ---
BACK TO ROOM S/P LEFT HEART CATH. LEFT GROIN DRESSING CLEAN/DRY/INTACT, NO BRUISING NO HEMATOMA NOTED. LEFT BRACHIAL ANGIO-SEAL IN PLACED. WILL START DEFLATE AT 1100. PT INSTRUCTED TO LIE FLAT UNTIL 1200PM. VERBALIZED UNDERSTANDING. BED LOCKED IN THE LOWEST POSITION, CALL LIGHT WITHIN EASY REACH, WILL CONTINUE CARE.
[2019-12-12] MEDS: AMIODARONE HCL 200 MG TAB PO SCH (11:18)
[2019-12-12] MEDS: FUROSEMIDE 100 MG/10ML VIAL IV SCH (11:18)
[2019-12-12] MEDS: CLOPIDOGREL BISULFATE 75 MG TAB PO SCH (11:19)
[2019-12-12] MEDS: DOXYCYCLINE 100 MG TAB/CAP PO SCH ×2 (11:19→21:53)
[2019-12-12] MEDS: CARVEDILOL 12.5 MG TAB PO SCH ×2 (11:19→21:53)
[2019-12-12] MEDS: PANTOPRAZOLE 40 MG TAB PO SCH (11:19)
[2019-12-12] MEDS: SODIUM FERR GLUC 125 MG in NS 100 ML IV SCH (12:00)
--- NOTE | 2019-12-12 12:30 | NUR ---
PT RESTING IN BED, DENIED OF PAIN NOR ANY DISCOMFORT AT THIS TIME, LEFT GROIN DRESSING CLEAN/DRY/INTACT NO BLEEDING NOTED. ANGIO-SEAL TO LEFT WRIST REMOVED, SMALL BAND AID APPLIED, NO BRUISING NO BLEEDING NOTED. VS: 99.0, 59, 18, 132/70, 98% ON 2 L VIA N/C. PULSE (+) TO LEFT WRIST, LEFT HAND WARM TO TOUCH, ABLE TO MOVE ALL FINGERS. PT INSTRUCTED TO NOTIFY RN IF ANY PAIN, SWELLING BRUISING OR BLEEDING NOTED TO ANY SITE. VERBALIZED UNDERSTANDING, WILL CONTINUE CARE. Signed: 12/12/19 at 1625 by Alejandro Rhodes RN RN
--- NOTE | 2019-12-12 12:40 | NUR ---
SEVELAMER IS NOT AVAILABLE AT THIS TIME, PHARMACY NOTIFIED.
[2019-12-12 12:46] VITALS: BP 129/68
[2019-12-12] MEDS: B-COMPLEX W/ C & FOLIC ACID(NEPHROVITE TAB) PO SCH (13:04)
[2019-12-12 17:13] VITALS: BP 116/54
--- NOTE | 2019-12-12 19:30 | NUR ---
Opening Shift Note Assumed care of patient, awake and alert. No S/S of distress/SOB or pain. Instructed on POC and to call for assist PRN. Bed in lowest locked position, call light within reach, side rails up x2, fall precautions in place. Will continue to monitor for changes Q1hr and PRN.
[2019-12-12] MEDS: DONEPEZIL HYDROCHLORIDE 5 MG TAB PO SCH (21:53)
[2019-12-12] MEDS: ATORVASTATIN 20 MG TAB PO SCH (21:53)
[2019-12-12 22:00] VITALS: BP 130/77
[2019-12-13 05:00] VITALS: BP 125/62
[2019-12-13 06:00] LABS: Basophils # (auto) 0.1 10 ^3/uL (0-0.2); Basophils % (auto) 0.8 % (0.0-2.0); Eosinophils # (auto) 0.1 10 ^3/uL (0-0.8); Eosinophils % (auto) 1.7 % (0.0-7.0); Hematocrit 29.6 % (41.0-53.0); Hemoglobin 9.5 g/dL (13.5-17.5); Lymphocytes # (auto) 0.7 10 ^3/uL (0.4-5.4); Lymphocytes % (auto) 9.7 % (10.0-50.0); Mean Corpuscular Hemoglobin 27.2 pg (28.0-32.0); Mean Corpuscular Hgb Conc. 32.2 g/dL (32.0-36.0); Mean Corpuscular Volume 84.6 fL (80.0-100.0); Monocytes # (auto) 0.8 10 ^3/uL (0-1.3); Monocytes % (auto) 10.9 % (0.0-12.0); Neutrophils # (auto) 5.6 10 ^3/uL (1.6-8.6); Neutrophils % (auto) 76.9 % (37.0-80.0); Nucleated Red Blood Cells % 0.1 %; Platelet Count (auto) 184 10^3/uL (140-450); White Blood Cell 7.3 10^3/uL (4.4-10.8)
[2019-12-13 06:05] LABS: Red Cell Distribution Width 21.1 % (11.8-14.3)
[2019-12-13] MEDS: InsuLIN REG 1unit/0.01ml Soln (100units/ml) SC SCH ×3 (06:36→16:51)
[2019-12-13] MEDS: ACCU-CHEK COMFORT CURVE STRIP VI SCH ×3 (06:36→16:51)
[2019-12-13] MEDS ORDERED: SODIUM CHL 0.9% 1000 ML BAG XX ONE (07:00)
--- NOTE | 2019-12-13 07:05 | NUR ---
OPENING NOTE Assumed care of patient at 0700. Respiratory sounds clear, unlabored and equal bilaterally. Patient verbalized that he is not having any pain at this time. Bed locked in lowest position, HOB elevated at least 30 degrees, side rails up x 2 and call light is within reach. Will continue to monitor.
[2019-12-13] MEDS: SEVELAMER 800 MG TAB PO SCH ×4 (08:00→18:30)
[2019-12-13 09:00] VITALS: BP 117/60
--- NOTE | 2019-12-13 09:02 | NUR ---
PATIENT TAKEN TO BREAD SLICER MACHINE FOR PROCEDURE NO DISTRESS NOTED.
[2019-12-13] MEDS: FUROSEMIDE 100 MG/10ML VIAL IV SCH (10:00)
[2019-12-13] MEDS: CARVEDILOL 12.5 MG TAB PO SCH (10:00)
[2019-12-13] MEDS: B-COMPLEX W/ C & FOLIC ACID(NEPHROVITE TAB) PO SCH (10:00)
[2019-12-13] MEDS: DOXYCYCLINE 100 MG TAB/CAP PO SCH (10:00)
[2019-12-13] MEDS: PANTOPRAZOLE 40 MG TAB PO SCH (10:00)
[2019-12-13] MEDS: AMIODARONE HCL 200 MG TAB PO SCH (10:00)
[2019-12-13] MEDS ORDERED: ASPirin 81 mg TAB PO ONE (10:15)
[2019-12-13] MEDS ORDERED: fentaNYL CITRATE 100 MCG/2 ML VL ONE (10:53)
[2019-12-13] MEDS ORDERED: HEPARIN SODIUM (PORCINE) 5000 UNITS/ML 1ML VIAL ONE (10:54)
[2019-12-13] MEDS ORDERED: LIDOCAINE 2%HCL (LOCAL ANESTH.) INJ 20ML MDV ONE (10:54)
[2019-12-13] MEDS ORDERED: MIDAZOLAM HCL 1MG/1ML-2 ML VIAL ONE (10:54)
[2019-12-13] MEDS: SODIUM FERR GLUC 125 MG in NS 100 ML IV SCH (12:00)
--- NOTE | 2019-12-13 13:00 | NUR ---
PATIENT RETURNED FROM IT SYSTEMS ENGINEER. RESTING WITH NO SIGNS OF DISTRESS AT THIS TIME. WILL CONTINUE TO MONITOR.
--- NOTE | 2019-12-13 14:53 | NUR ---
Nutrition Followup Note Wt: 106.1 kg Pt was off the floor when rounded this am to lab nurse. per records pt to have HD today. pt is on renal cardiac diet with inadequate PO of 50% x 4 per RN doc Est. Energy Needs IBW 89 [id number] kcal (30-33 kcal/kg BW), Est. Protein Needs: 106-124 gms/day (1.2-1.4gms/kg BW r/t pt on HD). Will continue to monitor and reassess prn. Labs: CREAT 4.47 H, BM: Pt had 1 BM today per RN doc Skin: BS 21 low risk, full details in ocular care aide doc PES: Altered nutrition related lab values r.t current chronic medical condition aeb elev RFT hyperglycemia, hypocalcemia RECOMMENDATION: 1) consider CCHO 75 gm along with current diet. 2) refer to CDE on DC. 3) continue current plan of care. F/u mod 3-5 days
--- NOTE | 2019-12-13 16:20 | NUR ---
DIALYSIS COMPLETE PER VFX ARTIST, 2.5L REMOVED. PATIENT TOLERATED WELL. VITALS STABLE. WILL CONTINUE TO MONITOR.
[2019-12-13] MEDS: CLOPIDOGREL BISULFATE 75 MG TAB PO SCH (16:55)
[2019-12-13 17:05] VITALS: BP 112/62
--- NOTE | 2019-12-13 17:10 | NUR ---
DR. IRVING PAGED REGARDING PATIENTS GROIN CATHETER. DOES CATHETER NEED TO BE REMOVED BEFORE DC, IF NEEDS TO BE REMOVED SURGICAL CONSULT NEEDED FOR REMOVAL.
--- NOTE | 2019-12-13 17:49 | NUR ---
SPOKE WITH DR ZAMUDIO REGARDING GROIN CATHETER PATIENT IS OKAY TO BE DISCHARGED WITH CATHETER IN PLACE. DR ZAMUDIO WILL HAVE OFFICE CONTACT PATIENT AND SCHEDULE APPOINTMENT TO HAVE REMOVED IN OFFICE. SECURE CATHETER IN PLACE AT THIS TIME.
--- NOTE | 2019-12-13 18:06 | NUR ---
SPOKE WITH DR. ROBB ZAMUDIO WILL COME TO BEDSIDE TO REMOVE GROIN CATHETER, SUPPLIES TAKEN TO BEDSIDE. PER DR ZAMUDIO PATIENT IS TO BE MONITORED OVER NIGHT. DISCHARGE IS ON HOLD UNTIL TOMORROW MORNING. DR ESPINOZA AND CIVIL MANAGER MADE AWARE.
--- NOTE | 2019-12-13 18:45 | NUR ---
DR ZAMUDIO AT BEDSIDE REMOVING GROIN CATHETER CATHETER REMOVED. PATIENT TOLERATED WELL. PRESSURE APPLIED FOR 5 MINUTES, NO BLEEDING NOTED. PER MD APPLY PRESSURE DRESSING TO SITE AND LONG THERE IS NO BLEEDING NOTED IN 45 MINUTES PATIENT IS OKAY TO BE DISCHARGED HOME. WILL ENDORSE CARE TO PRICING STRATEGIST RN.
--- NOTE | 2019-12-13 19:45 | NUR ---
Right groin assessment No bleeding noted on right groin. Per report okay to discharge patient.
[2019-12-13 20:00] VITALS: BP 124/62
--- NOTE | 2019-12-13 20:40 | NUR ---
Discharge Discharge instructions given as ordered. Encourage to follow up with PMD as instructed. All questions and concerns addressed. Patient verbalized understanding. Medication reconciliation form completed and copy given to patient. IV removed with catheter intact, pressure dressing applied. Telemetry unit returned to ICU. Patient taken to vehicle via wheelchair with all personal belongings, accompanied by staff and family member. No distress noted at time of departure.
[2019-12-13] MEDS ORDERED: EPOETIN ALFA 10,000 UNIT/1 ML VIAL SC ONE (21:00)
== END 2019-12-13 20:40 | disposition home or self-care (01) | DRG 246 ==
LOC: ER 10:28 → EDBD 10:28 → TELE 10:29 → TELE-WESTW 12-08 19:51
PROVIDERS: ADMIT Internal Medicine; ATTEND Internal Medicine
PROC: 30230N1 Transfusion of Nonautologous Red Blood Cells into Peripheral Vein, Open Approach (ICD-10-PCS; principal; 2019-12-04)
PROC: 06HY33Z Insertion of Infusion Device into Lower Vein, Percutaneous Approach (ICD-10-PCS; 2019-12-05)
PROC: 5A1D70Z Performance of Urinary Filtration, Intermittent, Less than 6 Hours Per Day (ICD-10-PCS; 2019-12-06)
PROC: 5A1D70Z Performance of Urinary Filtration, Intermittent, Less than 6 Hours Per Day (ICD-10-PCS; 2019-12-07)
PROC: 5A1D70Z Performance of Urinary Filtration, Intermittent, Less than 6 Hours Per Day (ICD-10-PCS; 2019-12-08)
PROC: 5A1D70Z Performance of Urinary Filtration, Intermittent, Less than 6 Hours Per Day (ICD-10-PCS; 2019-12-11)
PROC: 027136Z Dilation of Coronary Artery, Two Arteries with Three Drug-eluting Intraluminal Devices, Percutaneous Approach (ICD-10-PCS; 2019-12-12)
PROC: 4A023N7 Measurement of Cardiac Sampling and Pressure, Left Heart, Percutaneous Approach (ICD-10-PCS; 2019-12-12)
PROC: B2111ZZ Fluoroscopy of Multiple Coronary Arteries using Low Osmolar Contrast (ICD-10-PCS; 2019-12-12)
PROC: B41G1ZZ Fluoroscopy of Left Lower Extremity Arteries using Low Osmolar Contrast (ICD-10-PCS; 2019-12-12)
PROC: 5A1D70Z Performance of Urinary Filtration, Intermittent, Less than 6 Hours Per Day (ICD-10-PCS; 2019-12-13)
PROC: 0JH63XZ Insertion of Tunneled Vascular Access Device into Chest Subcutaneous Tissue and Fascia, Percutaneous Approach (ICD-10-PCS; 2019-12-13)
PROC: 02H633Z Insertion of Infusion Device into Right Atrium, Percutaneous Approach (ICD-10-PCS; 2019-12-13)
PROC: B5181ZA Fluoroscopy of Superior Vena Cava using Low Osmolar Contrast, Guidance (ICD-10-PCS; 2019-12-13)
DX: T82.855A Stenosis of coronary artery stent, initial encounter (principal); J96.21 Acute and chronic respiratory failure with hypoxia; I21.4 Non-ST elevation (NSTEMI) myocardial infarction; J18.9 Pneumonia, unspecified organism; N18.6 End stage renal disease; I50.23 Acute on chronic systolic (congestive) heart failure; N25.81 Secondary hyperparathyroidism of renal origin; J98.11 Atelectasis; I13.2 Hypertensive heart and chronic kidney disease with heart failure and with stage 5 chronic kidney disease, or end stage renal disease; N17.9 Acute kidney failure, unspecified; J44.0 Chronic obstructive pulmonary disease with (acute) lower respiratory infection; E66.9 Obesity, unspecified; I48.0 Paroxysmal atrial fibrillation; I27.20 Pulmonary hypertension, unspecified; I35.0 Nonrheumatic aortic (valve) stenosis; E11.22 Type 2 diabetes mellitus with diabetic chronic kidney disease; E78.5 Hyperlipidemia, unspecified; E87.5 Hyperkalemia; D63.1 Anemia in chronic kidney disease; F17.210 Nicotine dependence, cigarettes, uncomplicated; Y83.1 Surgical operation with implant of artificial internal device as the cause of abnormal reaction of the patient, or of later complication, without mention of misadventure at the time of the procedure; I25.5 Ischemic cardiomyopathy; Z20.828 Contact with and (suspected) exposure to other viral communicable diseases; Z86.73 Personal history of transient ischemic attack (TIA), and cerebral infarction without residual deficits; Z99.2 Dependence on renal dialysis; Z99.81 Dependence on supplemental oxygen; Z95.810 Presence of automatic (implantable) cardiac defibrillator; Z86.711 Personal history of pulmonary embolism; Z68.28 Body mass index [BMI] 28.0-28.9, adult; Z79.01 Long term (current) use of anticoagulants; Z95.1 Presence of aortocoronary bypass graft
CPT/HCPCS: 36415; 36561; 71045; 75710; 76942; 77001; 80048; 80053; 80074; 81001; 82306; 82565; 82728; 82962; 83036; 83540; 83550; 83605; 83615; 83735; 83880; 83970; 84100; 84484; 85014; 85018; 85025; 85379; 85610; 85730; 86141; 86850; 86900; 86901; 86920; 87040; 87070; 87804; 87880; 90935; 92928; 93005; 93306; 93458; 94640; 99152; 99153; 99291; C1874; G0378; J0696; J0885; J1642; J1756; J1815; J2250; P9047; Q9967

== ENCOUNTER 2020-02-23 10:12 | Inpatient (IN) | payer OTHER, MEDICAID ==
[~2020-02-23] VITALS: Ht 193 cm; Wt 120.2 kg
[~2020-02-23 10:12] MED LIST changes: -ALBUAER3 IN; +ALBUAER3 INH; -AML5T PO; +ASPI-264 PO; -ASPI325T4 PO; -CHOL400L8 PO; +CLOP75TA28 PO; +DOCU100C8 PO; +FERR-20 PO; +FURO1TAB33 PO; -FURO40TA4 PO; -IPRIH IN; +IPRIH INH; +LORA10CA12 PO; -PANT1INJ3 PO; +PANT40T PO; +PRAV20TA3 PO; -SIMV-8 PO; -WARF3TAB22 PO
[2020-02-23 11:55] LABS: Basophils # (auto) 0 10 ^3/uL (0-0.2); Basophils % (auto) 0.6 % (0.0-2.0); Eosinophils # (auto) 0.1 10 ^3/uL (0-0.8); Eosinophils % (auto) 2.2 % (0.0-7.0); Hemoglobin 10.2 g/dL (13.5-17.5); Lymphocytes # (auto) 0.7 10 ^3/uL (0.4-5.4); Lymphocytes % (auto) 9.7 % (10.0-50.0); Mean Corpuscular Hemoglobin 28.5 pg (28.0-32.0); Mean Corpuscular Hgb Conc. 31.9 g/dL (32.0-36.0); Mean Corpuscular Volume 89.3 fL (80.0-100.0); Monocytes # (auto) 0.5 10 ^3/uL (0-1.3); Monocytes % (auto) 6.8 % (0.0-12.0); Neutrophils # (auto) 5.4 10 ^3/uL (1.6-8.6); Neutrophils % (auto) 80.7 % (37.0-80.0); Nucleated Red Blood Cells % 0.1 %; Platelet Count (auto) 177 10^3/uL (140-450); Red Blood Cells 3.58 10^6/uL (4.5-5.90); Red Cell Distribution Width 19.8 % (11.8-14.3); White Blood Cell 6.7 10^3/uL (4.4-10.8)
[2020-02-23 12:17] LABS: BUN/Creatinine Ratio 9.6; Potassium 4.5 mmol/L (3.5-5.1)
[2020-02-23 12:25] LABS: INR 1.11 (0.9-1.15); Partial Thromboplastin Time 22.2 sec (23.0-31.2)
[2020-02-23] MEDS ORDERED: LIDOCAINE 2%HCL (LOCAL ANESTH.) INJ 20ML MDV ONE (12:39)
[2020-02-23] MEDS ORDERED: IODIXANOL 320MG/ML 100ML BTL IV ONE ×2 (12:39→12:46)
[2020-02-23] MEDS ORDERED: fentaNYL CITRATE 100 MCG/2 ML VL ONE (12:45)
[2020-02-23] MEDS ORDERED: ANGIOMAX 250 MG VIAL IV ONE (12:45)
[2020-02-23] MEDS ORDERED: VERAPAMIL 2.5MG/ML INJ 2ML VIAL IV ONE (12:45)
[2020-02-23] MEDS ORDERED: MIDAZOLAM HCL 1MG/1ML-2 ML VIAL ONE (12:46)
[2020-02-23] MEDS ORDERED: SODIUM CHL 0.9% 50 ML ONE (12:46)
[2020-02-23] MEDS ORDERED: CLOPIDOGREL BISULFATE 75 MG TAB ONE (13:31)
[2020-02-23] MEDS ORDERED: ASPirin 81 mg TAB ONE (13:32)
[2020-02-23] MEDS ORDERED: MORPHINE SULF INJ 2 MG/ML SYRINGE 1ML IV PRN (14:00)
[2020-02-23] MEDS ORDERED: HYDROcodone-ACET 5/325MG TAB PO PRN (14:00)
[2020-02-23] MEDS ORDERED: ONDANSETRON HCL 4 MG/2 ML VIAL IV PRN (14:00)
[2020-02-23] MEDS ORDERED: ACETAMINOPHEN 500 MG TAB PO PRN (14:00)
[2020-02-23] MEDS ORDERED: NITROGLYCERIN 0.4 MG SL TAB SL PRN (14:00)
[2020-02-23 17:00] VITALS: BP_SYST 114; BP_SYST 145; BP_DIAS 57; BP_DIAS 78
[2020-02-23 22:00] VITALS: BP 135/61
[2020-02-24 05:00] VITALS: BP 165/78
[2020-02-24 08:00] VITALS: BP 186/91
[2020-02-24 08:42] VITALS: BP 186/91
[2020-02-24] MEDS ORDERED: CLOPIDOGREL BISULFATE 75 MG TAB PO SCH (10:00)
[2020-02-24] MEDS ORDERED: ASPirin 81 mg TAB PO SCH (10:00)
== END 2020-02-24 09:00 | disposition home or self-care (01) | DRG 246 ==
LOC: CATH 10:12 → TELE-CENTR 15:38
PROVIDERS: ADMIT Internal Medicine; ATTEND Internal Medicine
PROC: 027035Z Dilation of Coronary Artery, One Artery with Two Drug-eluting Intraluminal Devices, Percutaneous Approach (ICD-10-PCS; principal; 2020-02-23)
PROC: B211YZZ Fluoroscopy of Multiple Coronary Arteries using Other Contrast (ICD-10-PCS; 2020-02-23)
DX: T82.855A Stenosis of coronary artery stent, initial encounter (principal); N18.6 End stage renal disease; I25.10 Atherosclerotic heart disease of native coronary artery without angina pectoris; Y83.1 Surgical operation with implant of artificial internal device as the cause of abnormal reaction of the patient, or of later complication, without mention of misadventure at the time of the procedure; Z99.2 Dependence on renal dialysis; Z79.82 Long term (current) use of aspirin; Y92.89 Other specified places as the place of occurrence of the external cause; Z20.828 Contact with and (suspected) exposure to other viral communicable diseases
CPT/HCPCS: 36415; 80048; 85025; 85610; 85730; 87426; 92928; 93454; 99152; 99153; C1874; C1887; G0378; J2250; Q9967

== ENCOUNTER 2021-03-17 14:17 | Inpatient (IN) | payer OTHER, MEDICAID ==
[~2021-03-17] VITALS: Ht 185.4 cm; Wt 136.1 kg
[~2021-03-17 14:17] MED LIST changes: -ASPI-264 PO; +ASPI325T33 PO; +DOCU100C10 PO; -DOCU100C8 PO; -DONE10TA40 PO; +DONE1TAB88 PO
[2021-03-17 15:47] LABS: Eosinophils # (auto) 0.1 10 ^3/uL (0-0.8); Hemoglobin 8.4 g/dL (13.5-17.5); Lymphocytes # (auto) 0.6 10 ^3/uL (0.4-5.4); Monocytes # (auto) 0.6 10 ^3/uL (0-1.3); Neutrophils # (auto) 5.2 10 ^3/uL (1.6-8.6); White Blood Cell 6.5 10^3/uL (4.4-10.8)
[2021-03-17 15:49] LABS: Basophils # (auto) 0 10 ^3/uL (0-0.2); Basophils % (auto) 0.7 % (0.0-2.0); Eosinophils % (auto) 1.6 % (0.0-7.0); Hematocrit 26.1 % (41.0-53.0); Mean Corpuscular Hemoglobin 31.2 pg (28.0-32.0); Mean Corpuscular Volume 97.5 fL (80.0-100.0); Monocytes % (auto) 9.4 % (0.0-12.0); Neutrophils % (auto) 79.3 % (37.0-80.0); Nucleated Red Blood Cells % 0.7 %; Red Blood Cells 2.68 10^6/uL (4.5-5.90); Red Cell Distribution Width 16.7 % (11.8-14.3)
[2021-03-17 15:53] LABS: Urine Bacteria NONE SEEN /hpf (None Seen); Urine Blood Negative /uL (Negative); Urine Specific Gravity 1.017 (1.001-1.035); Urine WBC 1 /hpf (0 - 3)
[2021-03-17 16:24] VITALS: BP 115/45
[2021-03-17] MEDS ORDERED: BUMETANIDE 2.5mg/10ml (0.25 mg/ml) INJ IV ONE ×2 (16:30→22:30)
[2021-03-17 16:38] LABS: Alcohol, Urine < 3.0 mg/dL (0-10); Amphetamine Screen, Urine NEGATIVE (NEGATIVE); Barbiturate Scree,Urine NEGATIVE (NEGATIVE); Benzodiazephine Screen, Urine NEGATIVE (NEGATIVE); Cannabinoid Screen, Urine NEGATIVE (NEGATIVE); Cocaine Screen, Urine NEGATIVE (NEGATIVE); Opiate Scree,Urine NEGATIVE (NEGATIVE); Phencyclidine Screen, Urine NEGATIVE (NEGATIVE)
[2021-03-17 16:40] LABS: Albumin 3.3 g/dL (3.4-5.0); Anion Gap 7 (5-15); Carbon Dioxide 23 mmol/L (21-32); Chloride 108 mmol/L (98-107); Glucose 111 mg/dL (74-106); Magnesium 2.4 mg/dL (1.6-2.6); Sodium 138 mmol/L (136-145)
[2021-03-17 16:47] LABS: Alanine Aminotransferase 48 U/L (16-61); Alkaline Phosphatase 161 U/L (45-117); Aspartate Aminotransferase 17 U/L (15-37); BUN/Creatinine Ratio 14.2; Bilirubin, Total 0.4 mg/dL (0.2-1.0); Blood Alcohol < 3.0 mg/dL (0-5); GFR African American 11 mL/min; GFR Non-African American 9 mL/min; Total Protein 7.6 g/dL (6.4-8.2)
[2021-03-17 16:57] LABS: Blood Urea Nitrogen 90 mg/dL (7-18); Potassium 6.6 mmol/L (3.5-5.1)
[2021-03-17] MEDS ORDERED: MORPHINE SULFATE INJECTION 2 MG/ML SYRG IV PRN (17:15)
[2021-03-17] MEDS ORDERED: DEXTROSE (50%) 50ML SYRG IV ONE (17:15)
[2021-03-17] MEDS ORDERED: CALCIUM GLUC 1,000mg/50ml-NS 50 ML IV ONE (17:15)
[2021-03-17] MEDS ORDERED: SODIUM BICARBONATE 8.4 % INJ 50ML VIAL IV ONE (17:15)
[2021-03-17] MEDS ORDERED: NITROGLYCERIN 0.4 MG SL TAB SL PRN (17:15)
[2021-03-17] MEDS ORDERED: ALBUTEROL SULF 2.5 MG/0.5ML(0.5%) NEB SOLN NEB ONE (17:15)
[2021-03-17] MEDS ORDERED: InsuLIN REG 1unit/0.01ml Soln (100units/ml) IV ONE (17:15)
[2021-03-17] MEDS ORDERED: SODIUM BICARBONATE 50ML VIAL 150 ML in D5W 5% 1,000 ML IV ONE (17:45)
[2021-03-17 18:03] VITALS: BP 120/33
[2021-03-17 19:35] VITALS: BP 134/50
[2021-03-17 22:48] VITALS: BP 139/101
[2021-03-18] VITALS (10 sets, daily range): BP systolic 103–164; BP diastolic 23–116
[2021-03-18] MEDS: SODIUM ZIRCONIUM CYCL 10 GM PAK PO SCH ×3 (06:00→14:00)
[2021-03-18] MEDS ORDERED: SODIUM CHL 0.9% 1000 ML BAG XX ONE (07:00)
[2021-03-18 07:14] LABS: % Iron Saturation 10.4 % (20-55)
[2021-03-18 07:15] LABS: BUN/Creatinine Ratio 14.5; Calcium 8.3 mg/dL (8.5-10.1); Potassium 5.2 mmol/L (3.5-5.1)
[2021-03-18 07:22] LABS: Basophils # (auto) 0 10 ^3/uL (0-0.2); Basophils % (auto) 0.5 % (0.0-2.0); Eosinophils # (auto) 0.1 10 ^3/uL (0-0.8); Eosinophils % (auto) 1.2 % (0.0-7.0); Hemoglobin 8.4 g/dL (13.5-17.5); Monocytes # (auto) 0.6 10 ^3/uL (0-1.3); Nucleated Red Blood Cells % 0.1 %; Red Cell Distribution Width 16.7 % (11.8-14.3)
[2021-03-18 07:26] LABS: Hematocrit 25.2 % (41.0-53.0); Lymphocytes # (auto) 0.5 10 ^3/uL (0.4-5.4); Lymphocytes % (auto) 5.7 % (10.0-50.0); Mean Corpuscular Hemoglobin 32.2 pg (28.0-32.0); Mean Corpuscular Hgb Conc. 33.4 g/dL (32.0-36.0); Mean Corpuscular Volume 96.3 fL (80.0-100.0); Monocytes % (auto) 6.8 % (0.0-12.0); Neutrophils # (auto) 7.2 10 ^3/uL (1.6-8.6); Neutrophils % (auto) 85.8 % (37.0-80.0); Red Blood Cells 2.62 10^6/uL (4.5-5.90); White Blood Cell 8.4 10^3/uL (4.4-10.8)
[2021-03-18] MEDS ORDERED: ALBUMIN 25% 100 ML IV ONE ×2 (09:30→10:30)
[2021-03-18] MEDS ORDERED: FURO40TA4 PO (10:40)
[2021-03-18] MEDS ORDERED: FLUO-125 PO (10:48)
[2021-03-18] MEDS ORDERED: SEVE800T8 PO (10:48)
[2021-03-18] MEDS ORDERED: LIDO5PAD8 EX (10:48)
[2021-03-18] MEDS ORDERED: B-CO-5 OR (10:48)
[2021-03-18] MEDS ORDERED: INSLISPI SC (10:48)
[2021-03-18 16:13] LABS: Albumin 3.8 g/dL (3.4-5.0); Calcium 8.3 mg/dL (8.5-10.1); Potassium 4.1 mmol/L (3.5-5.1)
[2021-03-18 16:18] LABS: BUN/Creatinine Ratio 12.2; Bilirubin, Total 0.5 mg/dL (0.2-1.0); Total Protein 7.8 g/dL (6.4-8.2)
[2021-03-18] MEDS ORDERED: EPOETIN ALFA-EPBX 10,000 UNIT/1ML VIAL SC ONE (21:00)
[2021-03-18] MEDS ORDERED: DOXYCYCLINE 100MG/250ML 250 ML IV SCH (22:00)
[2021-03-18] MEDS: DOXYCYCLINE 100MG/250ML 250 ML IV SCH (22:22)
[2021-03-18] MEDS ORDERED: VANCOMYCIN PER PHARMACY 0 MG IV SCH (23:45)
[2021-03-19 00:14] VITALS: BP 105/39
[2021-03-19] MEDS ORDERED: VANCOMYCIN 1GM/250ML 250 ML IV ONE ×2 (00:30→10:00)
[2021-03-19 02:07] VITALS: BP 108/42
[2021-03-19 03:59] VITALS: BP 118/50
[2021-03-19 06:17] LABS: Basophils % (auto) 0.6 % (0.0-2.0); Eosinophils # (auto) 0.1 10 ^3/uL (0-0.8); Eosinophils % (auto) 0.8 % (0.0-7.0); Hemoglobin 8.4 g/dL (13.5-17.5); Lymphocytes # (auto) 0.4 10 ^3/uL (0.4-5.4); Mean Corpuscular Volume 95.5 fL (80.0-100.0); Monocytes # (auto) 0.7 10 ^3/uL (0-1.3); Neutrophils # (auto) 7.5 10 ^3/uL (1.6-8.6); Nucleated Red Blood Cells % 0.1 %; White Blood Cell 8.8 10^3/uL (4.4-10.8)
[2021-03-19 06:19] LABS: Basophils # (auto) 0 10 ^3/uL (0-0.2); Hematocrit 24.5 % (41.0-53.0); Lymphocytes % (auto) 4.3 % (10.0-50.0); Mean Corpuscular Hemoglobin 32.6 pg (28.0-32.0); Mean Corpuscular Hgb Conc. 34.2 g/dL (32.0-36.0); Monocytes % (auto) 8.3 % (0.0-12.0); Red Blood Cells 2.57 10^6/uL (4.5-5.90); Red Cell Distribution Width 16.4 % (11.8-14.3)
[2021-03-19 06:28] LABS: Potassium 4.4 mmol/L (3.5-5.1)
[2021-03-19 06:29] LABS: BUN/Creatinine Ratio 12.8; Calcium 8.7 mg/dL (8.5-10.1)
[2021-03-19 06:55] VITALS: BP 132/41
[2021-03-19] MEDS: DOXYCYCLINE 100MG/250ML 250 ML IV SCH (10:47)
[2021-03-19 15:00] VITALS: BP 159/49
[2021-03-19] MEDS ORDERED: PRAVASTATIN SODIUM 20 MG TAB PO SCH (18:00)
[2021-03-20] MEDS ORDERED: AMIODARONE HCL 200 MG TAB PO SCH (07:00)
[2021-03-20] MEDS ORDERED: ASPirin-EC 325mg tab PO SCH (10:00)
[2021-03-20] MEDS ORDERED: CLOPIDOGREL BISULFATE 75 MG TAB PO SCH (10:00)
== END 2021-03-19 16:30 | disposition home or self-care (01) | DRG 70 ==
LOC: EDUNIT# 14:17 → ER 14:17 → EDBD 14:17 → TELE 17:02
PROVIDERS: ADMIT Hospitalist; ATTEND Hospitalist
PROC: 5A09357 Assistance with Respiratory Ventilation, Less than 24 Consecutive Hours, Continuous Positive Airway Pressure (ICD-10-PCS; principal; 2021-03-17)
PROC: 5A09357 Assistance with Respiratory Ventilation, Less than 24 Consecutive Hours, Continuous Positive Airway Pressure (ICD-10-PCS; 2021-03-18)
PROC: 5A09357 Assistance with Respiratory Ventilation, Less than 24 Consecutive Hours, Continuous Positive Airway Pressure (ICD-10-PCS; 2021-03-19)
PROC: 5A1D70Z Performance of Urinary Filtration, Intermittent, Less than 6 Hours Per Day (ICD-10-PCS; 2021-03-19)
DX: G93.41 Metabolic encephalopathy (principal); J96.01 Acute respiratory failure with hypoxia; N18.6 End stage renal disease; J96.22 Acute and chronic respiratory failure with hypercapnia; I13.2 Hypertensive heart and chronic kidney disease with heart failure and with stage 5 chronic kidney disease, or end stage renal disease; R78.81 Bacteremia; Z68.41 Body mass index [BMI] 40.0-44.9, adult; E87.2 Acidosis; E87.5 Hyperkalemia; D63.1 Anemia in chronic kidney disease; E11.22 Type 2 diabetes mellitus with diabetic chronic kidney disease; E66.01 Morbid (severe) obesity due to excess calories; E78.5 Hyperlipidemia, unspecified; F17.210 Nicotine dependence, cigarettes, uncomplicated; I25.10 Atherosclerotic heart disease of native coronary artery without angina pectoris; K21.9 Gastro-esophageal reflux disease without esophagitis; I48.91 Unspecified atrial fibrillation; Z20.822 Contact with and (suspected) exposure to COVID-19; I50.9 Heart failure, unspecified; Z99.2 Dependence on renal dialysis; Z80.8 Family history of malignant neoplasm of other organs or systems; Z82.49 Family history of ischemic heart disease and other diseases of the circulatory system; Z86.73 Personal history of transient ischemic attack (TIA), and cerebral infarction without residual deficits; Z91.15 Patient's noncompliance with renal dialysis; Z95.0 Presence of cardiac pacemaker; Z98.61 Coronary angioplasty status
CPT/HCPCS: 36415; 36600; 70450; 71045; 80048; 80053; 80307; 80320; 81001; 82728; 82805; 83540; 83550; 83605; 83735; 84132; 84484; 85025; 85379; 87040; 87077; 87186; 87426; 90935; 93005; 93306; 93970; 94640; 94660; 96365; 96375; 99291; G0378; J1642; J1815; J3490; P9047

== ENCOUNTER 2021-05-13 09:44 | Inpatient (IN) | payer OTHER, MEDICAID ==
[~2021-05-13] VITALS: Ht 180.3 cm; Wt 117.5 kg
[~2021-05-13 09:44] MED LIST changes: +B-CO-5 OR; -DOCU100C10 PO; +FLUO-125 PO; -FURO1TAB33 PO; +FURO40TA4 PO; +INSLISPI SC; -IPRIH INH; +LIDO5PAD8 EX; +SEVE800T8 PO
[2021-05-13 10:22] LABS: Basophils # (auto) 0 10 ^3/uL (0-0.2); Eosinophils # (auto) 0 10 ^3/uL (0-0.8); Eosinophils % (auto) 0.5 % (0.0-7.0); Lymphocytes # (auto) 0.4 10 ^3/uL (0.4-5.4)
[2021-05-13 10:24] LABS: Basophils % (auto) 0.6 % (0.0-2.0); Hematocrit 30.9 % (41.0-53.0); Hemoglobin 10.1 g/dL (13.5-17.5); Lymphocytes % (auto) 6.4 % (10.0-50.0); Mean Corpuscular Hemoglobin 32.1 pg (28.0-32.0); Mean Corpuscular Hgb Conc. 32.7 g/dL (32.0-36.0); Mean Corpuscular Volume 98.2 fL (80.0-100.0); Monocytes # (auto) 0.4 10 ^3/uL (0-1.3); Monocytes % (auto) 6.2 % (0.0-12.0); Neutrophils % (auto) 86.3 % (37.0-80.0); Nucleated Red Blood Cells % 0.2 %; Red Blood Cells 3.15 10^6/uL (4.5-5.90); Red Cell Distribution Width 17.9 % (11.8-14.3); White Blood Cell 6.9 10^3/uL (4.4-10.8)
[2021-05-13 10:36] LABS: Albumin 3.5 g/dL (3.4-5.0); Calcium 6.7 mg/dL (8.5-10.1)
[2021-05-13 10:41] LABS: BUN/Creatinine Ratio 9.7; Bilirubin, Total 0.4 mg/dL (0.2-1.0)
[2021-05-13 10:53] LABS: Potassium 7.7 mmol/L (3.5-5.1)
[2021-05-13] MEDS ORDERED: InsuLIN REG 1unit/0.01ml Soln (100units/ml) IV ONE (11:00)
[2021-05-13] MEDS ORDERED: SODIUM BICARBONATE 8.4% INJ 50ML SYRINGE IV ONE (11:00)
[2021-05-13] MEDS ORDERED: DEXTROSE (50%) 50ML SYRG IV ONE (11:00)
[2021-05-13] MEDS ORDERED: ALBUTEROL SULF 2.5 MG/0.5ML(0.5%) NEB SOLN NEB ONE ×2 (11:00→12:00)
[2021-05-13] MEDS ORDERED: CALCIUM GLUC 1,000mg/50ml-NS 50 ML IV ONE (11:00)
[2021-05-13] MEDS ORDERED: FUROSEMIDE 20 MG/2 ML VIAL IV ONE (11:00)
[2021-05-13] MEDS ORDERED: SODIUM CHL 0.9% 1000 ML BAG XX ONE (12:00)
[2021-05-13] MEDS ORDERED: ALBUMIN 25% 100 ML IV PRN (13:30)
[2021-05-13 14:28] LABS: Calcium 6.9 mg/dL (8.5-10.1)
[2021-05-13 14:33] LABS: BUN/Creatinine Ratio 9.6
[2021-05-13 15:01] LABS: Potassium 6.1 mmol/L (3.5-5.1)
[2021-05-13 18:06] LABS: Albumin 3.6 g/dL (3.4-5.0); Calcium 6.5 mg/dL (8.5-10.1); Potassium 4.3 mmol/L (3.5-5.1)
[2021-05-13 18:09] LABS: BUN/Creatinine Ratio 9.1; Bilirubin, Total 0.4 mg/dL (0.2-1.0); Total Protein 7.8 g/dL (6.4-8.2)
[2021-05-13] MEDS ORDERED: NOREPINEPHRINE 8 MG/250ML KIT 250 ML IV ONE (20:48)
[2021-05-13] MEDS ORDERED: EPOETIN ALFA-EPBX 10,000 UNIT/1ML VIAL SC ONE (21:00)
[2021-05-13] MEDS: NOREPINEPHRINE 8 MG/250ML KIT 250 ML IV SCH (21:07)
[2021-05-14] MEDS ORDERED: DEXTROSE (50%) 50ML SYRG IV PRN (01:45)
[2021-05-14] MEDS: AMIODARONE HCL 200 MG TAB PO SCH (06:47)
[2021-05-14] MEDS: FUROSEMIDE 40 MG TAB PO SCH (06:47)
[2021-05-14] MEDS: PANTOPRAZOLE 40 MG TAB PO SCH (06:48)
[2021-05-14] MEDS: InsuLIN REG 1unit/0.01ml Soln (100units/ml) SC SCH ×4 (06:53→22:00)
[2021-05-14] MEDS: ACCU-CHEK COMFORT CURVE STRIP VI SCH ×4 (06:54→22:00)
[2021-05-14 06:59] LABS: Calcium 6.8 mg/dL (8.5-10.1)
[2021-05-14 07:01] LABS: BUN/Creatinine Ratio 8.4; Basophils # (auto) 0 10 ^3/uL (0-0.2); Basophils % (auto) 0.6 % (0.0-2.0); Eosinophils # (auto) 0.1 10 ^3/uL (0-0.8); Hemoglobin 9.9 g/dL (13.5-17.5); Lymphocytes # (auto) 0.4 10 ^3/uL (0.4-5.4); Lymphocytes % (auto) 4.9 % (10.0-50.0); Mean Corpuscular Volume 97.9 fL (80.0-100.0); Monocytes # (auto) 0.7 10 ^3/uL (0-1.3); Nucleated Red Blood Cells % 0.3 %; Red Cell Distribution Width 17.7 % (11.8-14.3); White Blood Cell 8.1 10^3/uL (4.4-10.8)
[2021-05-14 07:07] LABS: Eosinophils % (auto) 0.7 % (0.0-7.0); Hematocrit 29.9 % (41.0-53.0); Mean Corpuscular Hemoglobin 32.4 pg (28.0-32.0); Mean Corpuscular Hgb Conc. 33.1 g/dL (32.0-36.0); Monocytes % (auto) 9.1 % (0.0-12.0); Neutrophils # (auto) 6.9 10 ^3/uL (1.6-8.6); Neutrophils % (auto) 84.7 % (37.0-80.0); Red Blood Cells 3.05 10^6/uL (4.5-5.90)
[2021-05-14 07:10] LABS: Potassium 6.1 mmol/L (3.5-5.1)
[2021-05-14] MEDS: CALCIUM ACETATE 667 MG CAP PO SCH ×3 (07:48→18:20)
[2021-05-14] MEDS: SEVELAMER 800 MG TAB PO SCH ×3 (07:48→18:20)
[2021-05-14] MEDS ORDERED: CALCIUM GLUC 1,000mg/50ml-NS 50 ML IV ONE ×2 (08:15→15:00)
[2021-05-14] MEDS ORDERED: BUMETANIDE 2.5mg/10ml (0.25 mg/ml) INJ IV ONE (08:15)
[2021-05-14] MEDS ORDERED: InsuLIN REG 1unit/0.01ml Soln (100units/ml) IV ONE (08:15)
[2021-05-14] MEDS ORDERED: ALBUTEROL SULF 2.5 MG/0.5ML(0.5%) NEB SOLN NEB ONE ×2 (08:15→15:00)
[2021-05-14] MEDS ORDERED: DEXTROSE (50%) 50ML SYRG IV ONE ×2 (08:15→15:00)
[2021-05-14] MEDS ORDERED: SODIUM ZIRCONIUM CYCL 10 GM PAK PO ONE ×2 (09:15→15:00)
[2021-05-14 09:26] LABS: INR 1.22 (0.9-1.15); Partial Thromboplastin Time 22.9 sec (23.6-33.0)
[2021-05-14] MEDS: CARVEDILOL 12.5 MG TAB PO SCH ×2 (09:56→22:00)
[2021-05-14] MEDS: FLUoxetine HCL 20 MG CAP PO SCH (09:57)
[2021-05-14] MEDS: INSULIN LANTUS (GLARGINE) 1 /0.01ml (100units/ml) SC SCH (09:57)
[2021-05-14] MEDS: CLOPIDOGREL BISULFATE 75 MG TAB PO SCH (10:00)
[2021-05-14] MEDS: ASPirin-EC 325mg tab PO SCH (10:00)
[2021-05-14] MEDS: LACTULOSE 20Gm/30ML SOLN PO SCH ×3 (10:02→14:59)
[2021-05-14 11:17] LABS: BUN/Creatinine Ratio 8.6; Calcium 7.2 mg/dL (8.5-10.1); Potassium 5.4 mmol/L (3.5-5.1)
[2021-05-14 13:39] LABS: BUN/Creatinine Ratio 8.3; Calcium 6.7 mg/dL (8.5-10.1)
[2021-05-14 14:22] LABS: Potassium 5.7 mmol/L (3.5-5.1)
[2021-05-14] MEDS ORDERED: SODIUM BICARBONATE 8.4 % INJ 50ML VIAL IV ONE (15:00)
[2021-05-14] MEDS ORDERED: InsuLIN REG 1unit/0.01ml Soln (100units/ml) SC ONE (15:00)
[2021-05-14] MEDS ORDERED: SODIUM BICARBONATE 8.4% INJ 50ML SYRINGE ONE (15:34)
[2021-05-14] MEDS: PRAVASTATIN SODIUM 20 MG TAB PO SCH (18:20)
[2021-05-14 19:10] LABS: BUN/Creatinine Ratio 8.7; Calcium 6.8 mg/dL (8.5-10.1); Potassium 5.2 mmol/L (3.5-5.1)
[2021-05-14] MEDS: NOREPINEPHRINE 8 MG/250ML KIT 250 ML IV SCH (21:00)
[2021-05-15 02:26] LABS: BUN/Creatinine Ratio 7.8; Calcium 6.6 mg/dL (8.5-10.1)
[2021-05-15 02:31] LABS: Potassium 6.2 mmol/L (3.5-5.1)
[2021-05-15] MEDS ORDERED: SODIUM ZIRCONIUM CYCL 10 GM PAK PO ONE (03:00)
[2021-05-15] MEDS ORDERED: InsuLIN REG 1unit/0.01ml Soln (100units/ml) IV ONE (03:00)
[2021-05-15] MEDS ORDERED: DEXTROSE (50%) 50ML SYRG IV ONE (03:00)
[2021-05-15 06:48] LABS: Basophils # (auto) 0 10 ^3/uL (0-0.2); Basophils % (auto) 0.6 % (0.0-2.0); Eosinophils # (auto) 0 10 ^3/uL (0-0.8); Eosinophils % (auto) 0.7 % (0.0-7.0); Hemoglobin 9.4 g/dL (13.5-17.5); Monocytes # (auto) 0.6 10 ^3/uL (0-1.3); Monocytes % (auto) 8.7 % (0.0-12.0)
[2021-05-15 06:53] LABS: Hematocrit 29.3 % (41.0-53.0); Lymphocytes # (auto) 0.4 10 ^3/uL (0.4-5.4); Lymphocytes % (auto) 5.8 % (10.0-50.0); Mean Corpuscular Hemoglobin 31.7 pg (28.0-32.0); Mean Corpuscular Hgb Conc. 32.1 g/dL (32.0-36.0); Mean Corpuscular Volume 98.8 fL (80.0-100.0); Neutrophils # (auto) 5.6 10 ^3/uL (1.6-8.6); Neutrophils % (auto) 84.2 % (37.0-80.0); Nucleated Red Blood Cells % 0.2 %; Red Blood Cells 2.97 10^6/uL (4.5-5.90); Red Cell Distribution Width 18.1 % (11.8-14.3); White Blood Cell 6.6 10^3/uL (4.4-10.8)
[2021-05-15] MEDS: InsuLIN REG 1unit/0.01ml Soln (100units/ml) SC SCH ×4 (07:00→22:00)
[2021-05-15] MEDS: ACCU-CHEK COMFORT CURVE STRIP VI SCH ×4 (07:00→22:00)
[2021-05-15] MEDS: AMIODARONE HCL 200 MG TAB PO SCH ×2 (07:00→07:50)
[2021-05-15] MEDS ORDERED: SODIUM CHL 0.9% 1000 ML BAG XX ONE (07:00)
[2021-05-15] MEDS: PANTOPRAZOLE 40 MG TAB PO SCH (07:00)
[2021-05-15] MEDS: FUROSEMIDE 40 MG TAB PO SCH (07:00)
[2021-05-15 07:05] LABS: Calcium 6.6 mg/dL (8.5-10.1); Potassium 4.7 mmol/L (3.5-5.1)
[2021-05-15 07:07] LABS: BUN/Creatinine Ratio 8.5
[2021-05-15] MEDS: SEVELAMER 800 MG TAB PO SCH ×3 (08:00→18:00)
[2021-05-15] MEDS: CALCIUM ACETATE 667 MG CAP PO SCH ×3 (08:00→18:00)
[2021-05-15] MEDS ORDERED: ALBUMIN 25% 100 ML IV SCH (08:00)
[2021-05-15] MEDS: FLUoxetine HCL 20 MG CAP PO SCH (10:00)
[2021-05-15] MEDS: SODIUM ZIRCONIUM CYCL 10 GM PAK PO SCH (10:00)
[2021-05-15] MEDS: INSULIN LANTUS (GLARGINE) 1 /0.01ml (100units/ml) SC SCH (10:00)
[2021-05-15] MEDS: ASPirin-EC 325mg tab PO SCH (10:00)
[2021-05-15] MEDS: CLOPIDOGREL BISULFATE 75 MG TAB PO SCH (11:26)
[2021-05-15] MEDS: CARVEDILOL 12.5 MG TAB PO SCH ×2 (11:26→23:40)
[2021-05-15] MEDS ORDERED: LIDOCAINE 2%HCL (LOCAL ANESTH.) INJ 20ML MDV ONE (12:02)
[2021-05-15] MEDS ORDERED: IODIXANOL 320MG/ML 100ML BTL IV ONE (12:02)
[2021-05-15] MEDS ORDERED: fentaNYL CITRATE 100 MCG/2 ML VL ONE (12:50)
[2021-05-15] MEDS ORDERED: MIDAZOLAM HCL 2MG/2ML 2ml VIAL (1mg/ml) ONE (12:50)
[2021-05-15] MEDS ORDERED: HEPARIN SODIUM (PORCINE) 5000 UNITS/ML 1ML VIAL ONE (13:05)
[2021-05-15 14:40] VITALS: BP 95/36
[2021-05-15 14:55] VITALS: BP 113/49
[2021-05-15 15:10] VITALS: BP 104/48
[2021-05-15 15:15] VITALS: BP 100/50
[2021-05-15 15:23] LABS: Hepatitis A Ab IgM Negative; Hepatitis B Core IgM Negative
[2021-05-15 15:28] LABS: Hepatitis C Antibody Positive (Negative)
[2021-05-15] MEDS: PRAVASTATIN SODIUM 20 MG TAB PO SCH (18:00)
[2021-05-15] MEDS ORDERED: EPOETIN ALFA-EPBX 10,000 UNIT/1ML VIAL SC ONE (21:00)
[2021-05-15] MEDS: NOREPINEPHRINE 8 MG/250ML KIT 250 ML IV SCH (21:00)
[2021-05-16 06:22] LABS: Eosinophils # (auto) 0.1 10 ^3/uL (0-0.8); Eosinophils % (auto) 0.7 % (0.0-7.0); Hemoglobin 9.2 g/dL (13.5-17.5); Lymphocytes # (auto) 0.2 10 ^3/uL (0.4-5.4); Monocytes # (auto) 0.6 10 ^3/uL (0-1.3); Nucleated Red Blood Cells % 0.2 %
[2021-05-16 06:27] LABS: Basophils # (auto) 0 10 ^3/uL (0-0.2); Basophils % (auto) 0.4 % (0.0-2.0); Hematocrit 28.1 % (41.0-53.0); Lymphocytes % (auto) 3.2 % (10.0-50.0); Mean Corpuscular Hemoglobin 32.1 pg (28.0-32.0); Mean Corpuscular Hgb Conc. 32.8 g/dL (32.0-36.0); Mean Corpuscular Volume 97.8 fL (80.0-100.0); Monocytes % (auto) 7.7 % (0.0-12.0); Neutrophils # (auto) 6.7 10 ^3/uL (1.6-8.6); Red Blood Cells 2.87 10^6/uL (4.5-5.90); Red Cell Distribution Width 17.3 % (11.8-14.3); White Blood Cell 7.6 10^3/uL (4.4-10.8)
[2021-05-16 06:39] LABS: Calcium 7.4 mg/dL (8.5-10.1); Potassium 5.1 mmol/L (3.5-5.1)
[2021-05-16 06:41] LABS: BUN/Creatinine Ratio 8.7
[2021-05-16] MEDS: ACCU-CHEK COMFORT CURVE STRIP VI SCH ×4 (07:00→22:33)
[2021-05-16] MEDS: AMIODARONE HCL 200 MG TAB PO SCH (07:00)
[2021-05-16] MEDS: FUROSEMIDE 40 MG TAB PO SCH (07:00)
[2021-05-16] MEDS: InsuLIN REG 1unit/0.01ml Soln (100units/ml) SC SCH ×4 (07:00→22:00)
[2021-05-16] MEDS: PANTOPRAZOLE 40 MG TAB PO SCH (07:00)
[2021-05-16] MEDS: CALCIUM ACETATE 667 MG CAP PO SCH ×3 (08:00→17:07)
[2021-05-16] MEDS: SEVELAMER 800 MG TAB PO SCH ×3 (08:00→17:08)
[2021-05-16] MEDS: CLOPIDOGREL BISULFATE 75 MG TAB PO SCH (10:00)
[2021-05-16] MEDS: FLUoxetine HCL 20 MG CAP PO SCH (10:00)
[2021-05-16] MEDS: INSULIN LANTUS (GLARGINE) 1 /0.01ml (100units/ml) SC SCH (10:00)
[2021-05-16] MEDS: SODIUM ZIRCONIUM CYCL 10 GM PAK PO SCH (10:00)
[2021-05-16] MEDS: ASPirin-EC 325mg tab PO SCH (10:00)
[2021-05-16] MEDS: CARVEDILOL 12.5 MG TAB PO SCH ×2 (10:00→22:00)
[2021-05-16] MEDS ORDERED: ACETAMINOPHEN 650 MG RECT SUPP PR ONE ×2 (16:28→17:00)
[2021-05-16] MEDS ORDERED: diphenhdrAMINE HCL 50 MG/1 ML VL ONE (16:29)
[2021-05-16] MEDS ORDERED: diphenhdrAMINE HCL 50 MG/1 ML VL IV ONE (17:00)
[2021-05-16] MEDS: PRAVASTATIN SODIUM 20 MG TAB PO SCH (17:08)
[2021-05-16] MEDS ORDERED: ALPRAZolam 0.5 MG TAB PO PRN (17:30)
[2021-05-16] MEDS: NOREPINEPHRINE 8 MG/250ML KIT 250 ML IV SCH (21:00)
[2021-05-17] VITALS (10 sets, daily range): BP systolic 87–117; BP diastolic 45–93
[2021-05-17] MEDS ORDERED: ACETAMINOPHEN 325 MG TAB PO PRN (01:00)
[2021-05-17] MEDS ORDERED: ACETAMINOPHEN 650 MG RECT SUPP PR PRN (01:00)
[2021-05-17] MEDS ORDERED: ALBUTEROL SULF 2.5 MG/0.5ML(0.5%) NEB SOLN NEB PRN (06:15)
[2021-05-17] MEDS: AMIODARONE HCL 200 MG TAB PO SCH (06:41)
[2021-05-17] MEDS: FUROSEMIDE 40 MG TAB PO SCH (06:41)
[2021-05-17] MEDS: ACCU-CHEK COMFORT CURVE STRIP VI SCH ×4 (06:42→22:34)
[2021-05-17] MEDS: PANTOPRAZOLE 40 MG TAB PO SCH (06:42)
[2021-05-17] MEDS: InsuLIN REG 1unit/0.01ml Soln (100units/ml) SC SCH ×4 (06:48→22:00)
[2021-05-17 07:22] LABS: Basophils # (auto) 0 10 ^3/uL (0-0.2); Eosinophils # (auto) 0 10 ^3/uL (0-0.8); Hematocrit 29.4 % (41.0-53.0); Lymphocytes # (auto) 0.1 10 ^3/uL (0.4-5.4); Mean Corpuscular Volume 96.9 fL (80.0-100.0); Monocytes # (auto) 0.4 10 ^3/uL (0-1.3); Monocytes % (auto) 5.1 % (0.0-12.0); Neutrophils # (auto) 7.7 10 ^3/uL (1.6-8.6); Nucleated Red Blood Cells % 0.1 %; Red Blood Cells 3.04 10^6/uL (4.5-5.90); White Blood Cell 8.3 10^3/uL (4.4-10.8)
[2021-05-17 07:23] LABS: BUN/Creatinine Ratio 9.8; Calcium 6.9 mg/dL (8.5-10.1)
[2021-05-17 07:24] LABS: Basophils % (auto) 0.4 % (0.0-2.0); Hemoglobin 9.6 g/dL (13.5-17.5); Lymphocytes % (auto) 1.6 % (10.0-50.0); Mean Corpuscular Hemoglobin 31.7 pg (28.0-32.0); Mean Corpuscular Hgb Conc. 32.7 g/dL (32.0-36.0); Neutrophils % (auto) 92.9 % (37.0-80.0); Red Cell Distribution Width 16.9 % (11.8-14.3)
[2021-05-17 07:39] LABS: Potassium 5.6 mmol/L (3.5-5.1)
[2021-05-17] MEDS: SEVELAMER 800 MG TAB PO SCH ×3 (08:29→18:32)
[2021-05-17] MEDS: CALCIUM ACETATE 667 MG CAP PO SCH ×3 (08:29→18:32)
[2021-05-17] MEDS ORDERED: FUROSEMIDE 40 MG/4 ML VIAL IV SCH (10:15)
[2021-05-17] MEDS ORDERED: FUROSEMIDE 40 MG/4 ML VIAL IV ONE (11:00)
[2021-05-17] MEDS: SODIUM ZIRCONIUM CYCL 10 GM PAK PO SCH (11:04)
[2021-05-17] MEDS: CARVEDILOL 12.5 MG TAB PO SCH ×2 (11:04→22:00)
[2021-05-17] MEDS: FLUoxetine HCL 20 MG CAP PO SCH (11:05)
[2021-05-17] MEDS: INSULIN LANTUS (GLARGINE) 1 /0.01ml (100units/ml) SC SCH (11:05)
[2021-05-17] MEDS ORDERED: ALPRAZolam 0.5 MG TAB PO PRN (13:15)
[2021-05-17] MEDS: PRAVASTATIN SODIUM 20 MG TAB PO SCH (18:32)
[2021-05-17] MEDS: NOREPINEPHRINE 8 MG/250ML KIT 250 ML IV SCH (21:00)
[2021-05-18] VITALS (12 sets, daily range): BP systolic 84–111; BP diastolic 34–54
[2021-05-18] MEDS: ACCU-CHEK COMFORT CURVE STRIP VI SCH ×4 (06:55→22:02)
[2021-05-18] MEDS: InsuLIN REG 1unit/0.01ml Soln (100units/ml) SC SCH ×4 (06:56→22:07)
[2021-05-18] MEDS: PANTOPRAZOLE 40 MG TAB PO SCH (06:56)
[2021-05-18] MEDS: AMIODARONE HCL 200 MG TAB PO SCH (06:56)
[2021-05-18] MEDS ORDERED: ACETAMINOPHEN 650 MG RECT SUPP PR ONE (08:30)
[2021-05-18] MEDS: CALCIUM ACETATE 667 MG CAP PO SCH ×3 (09:04→19:03)
[2021-05-18] MEDS: SEVELAMER 800 MG TAB PO SCH ×3 (09:05→19:03)
[2021-05-18] MEDS ORDERED: FUROSEMIDE 40 MG/4 ML VIAL IV SCH (10:00)
[2021-05-18] MEDS: SODIUM ZIRCONIUM CYCL 10 GM PAK PO SCH (10:00)
[2021-05-18] MEDS: CARVEDILOL 12.5 MG TAB PO SCH ×2 (10:00→21:54)
[2021-05-18] MEDS: FLUoxetine HCL 20 MG CAP PO SCH (10:00)
[2021-05-18] MEDS: INSULIN LANTUS (GLARGINE) 1 /0.01ml (100units/ml) SC SCH (10:45)
[2021-05-18] MEDS ORDERED: VANCOMYCIN 1GM/250ML 250 ML IV ONE (11:00)
[2021-05-18] MEDS ORDERED: NOREPINEPHRINE 8 MG/250ML KIT 250 ML IV SCH (11:00)
[2021-05-18] MEDS ORDERED: VANCOMYCIN PER PHARMACY 0 MG IV SCH (11:00)
[2021-05-18 12:28] LABS: BUN/Creatinine Ratio 10.5; Calcium 7.9 mg/dL (8.5-10.1); Magnesium 1.8 mg/dL (1.6-2.6); Potassium 4.2 mmol/L (3.5-5.1)
[2021-05-18 12:30] LABS: Basophils # (auto) 0.1 10 ^3/uL (0-0.2); Basophils % (auto) 0.5 % (0.0-2.0); Eosinophils # (auto) 0 10 ^3/uL (0-0.8); Hemoglobin 9.8 g/dL (13.5-17.5); Lymphocytes # (auto) 0.2 10 ^3/uL (0.4-5.4); Lymphocytes % (auto) 1.4 % (10.0-50.0); Mean Corpuscular Hemoglobin 31.6 pg (28.0-32.0); Mean Corpuscular Hgb Conc. 32.7 g/dL (32.0-36.0); Mean Corpuscular Volume 96.5 fL (80.0-100.0); Monocytes # (auto) 0.3 10 ^3/uL (0-1.3); Neutrophils # (auto) 10.3 10 ^3/uL (1.6-8.6); Neutrophils % (auto) 95.1 % (37.0-80.0); Nucleated Red Blood Cells % 0.1 %; Red Blood Cells 3.11 10^6/uL (4.5-5.90); Red Cell Distribution Width 17.2 % (11.8-14.3); White Blood Cell 10.8 10^3/uL (4.4-10.8)
[2021-05-18] MEDS ORDERED: ACETAMINOPHEN 325 MG TAB PO PRN (13:30)
[2021-05-18] MEDS: SODIUM CHLORIDE 0.9% 1,000 ML IV SCH (13:43)
[2021-05-18] MEDS: PIPERACILLIN-TAZOB 2.25GM 50 ML IV SCH ×2 (16:11→21:40)
[2021-05-18] MEDS: PRAVASTATIN SODIUM 20 MG TAB PO SCH (19:03)
[2021-05-19] VITALS (7 sets, daily range): BP systolic 79–124; BP diastolic 40–58
[2021-05-19] MEDS: SODIUM CHLORIDE 0.9% 1,000 ML IV SCH (01:32)
[2021-05-19] MEDS ORDERED: PIPERACILLIN-TAZOB 2.25GM 50 ML IV ONE (05:44)
[2021-05-19] MEDS: PIPERACILLIN-TAZOB 2.25GM 50 ML IV SCH (05:49)
[2021-05-19] MEDS: ACCU-CHEK COMFORT CURVE STRIP VI SCH ×2 (06:47→12:50)
[2021-05-19] MEDS: AMIODARONE HCL 200 MG TAB PO SCH (06:47)
[2021-05-19] MEDS: PANTOPRAZOLE 40 MG TAB PO SCH (06:48)
[2021-05-19] MEDS: InsuLIN REG 1unit/0.01ml Soln (100units/ml) SC SCH ×2 (06:50→11:17)
[2021-05-19] MEDS: CALCIUM ACETATE 667 MG CAP PO SCH ×2 (07:36→12:50)
[2021-05-19] MEDS: CARVEDILOL 12.5 MG TAB PO SCH (07:37)
[2021-05-19] MEDS: SEVELAMER 800 MG TAB PO SCH ×2 (07:37→12:51)
[2021-05-19 07:58] LABS: Hematocrit 27.6 % (41.0-53.0); Hemoglobin 9.1 g/dL (13.5-17.5); Mean Corpuscular Hgb Conc. 32.9 g/dL (32.0-36.0); Red Cell Distribution Width 16.9 % (11.8-14.3)
[2021-05-19 08:00] LABS: Mean Corpuscular Hemoglobin 31.4 pg (28.0-32.0); Mean Corpuscular Volume 95.6 fL (80.0-100.0); Red Blood Cells 2.88 10^6/uL (4.5-5.90); White Blood Cell 13.6 10^3/uL (4.4-10.8)
[2021-05-19 08:05] LABS: Basophils % (manual) 0 (0.0-2.0); Blast Cells 0; Eosinophils % (manual) 0 (0-7); Metamyelocytes % 0; Myelocytes % 0; Promyelocytes % 0; Reactive Lymphocytes 0
[2021-05-19 08:11] LABS: BUN/Creatinine Ratio 11.1; Calcium 7.5 mg/dL (8.5-10.1); Potassium 4.3 mmol/L (3.5-5.1)
[2021-05-19 08:30] LABS: Band Neutrophils % (manual) 29; Lymphocytes % (manual) 4 (10.0-50.0); Monocytes % (manual) 3 (0-12)
[2021-05-19] MEDS ORDERED: SODIUM CHL 0.9% 1000 ML BAG XX ONE (08:45)
[2021-05-19] MEDS: ALBUMIN 25% 100 ML IV SCH ×2 (09:00→10:00)
[2021-05-19] MEDS: FLUoxetine HCL 20 MG CAP PO SCH (09:14)
[2021-05-19] MEDS: SODIUM ZIRCONIUM CYCL 10 GM PAK PO SCH (09:14)
[2021-05-19] MEDS ORDERED: LORazepam 2MG/ML-1ML VIAL IV PRN (10:00)
[2021-05-19] MEDS ORDERED: MORPHINE SULFATE INJECTION 2 MG/ML SYRG IV PRN (10:00)
[2021-05-19] MEDS ORDERED: VANCOMYCIN 1GM/250ML 250 ML IV ONE (11:15)
[2021-05-19] MEDS ORDERED: EPOETIN ALFA-EPBX 10,000 UNIT/1ML VIAL SC ONE (21:00)
== END 2021-05-19 14:34 | DRG 291 ==
LOC: ER 09:44 → EDBD 09:44 → TELE 13:14
PROVIDERS: ADMIT Internal Medicine; ATTEND Internal Medicine
PROC: 5A1D70Z Performance of Urinary Filtration, Intermittent, Less than 6 Hours Per Day (ICD-10-PCS; principal; 2021-05-13)
PROC: 5A1D70Z Performance of Urinary Filtration, Intermittent, Less than 6 Hours Per Day (ICD-10-PCS; 2021-05-15)
PROC: 05H933Z Insertion of Infusion Device into Right Brachial Vein, Percutaneous Approach (ICD-10-PCS; 2021-05-15)
PROC: B54MZZA Ultrasonography of Right Upper Extremity Veins, Guidance (ICD-10-PCS; 2021-05-15)
PROC: 06HY33Z Insertion of Infusion Device into Lower Vein, Percutaneous Approach (ICD-10-PCS; 2021-05-15)
PROC: 05JY3ZZ Inspection of Upper Vein, Percutaneous Approach (ICD-10-PCS; 2021-05-15)
PROC: 5A1D70Z Performance of Urinary Filtration, Intermittent, Less than 6 Hours Per Day (ICD-10-PCS; 2021-05-17)
PROC: 5A09457 Assistance with Respiratory Ventilation, 24-96 Consecutive Hours, Continuous Positive Airway Pressure (ICD-10-PCS; 2021-05-17)
PROC: 5A1D70Z Performance of Urinary Filtration, Intermittent, Less than 6 Hours Per Day (ICD-10-PCS; 2021-05-19)
DX: I13.2 Hypertensive heart and chronic kidney disease with heart failure and with stage 5 chronic kidney disease, or end stage renal disease (principal); J96.01 Acute respiratory failure with hypoxia; N18.6 End stage renal disease; I50.23 Acute on chronic systolic (congestive) heart failure; A41.89 Other specified sepsis; R65.21 Severe sepsis with septic shock; J96.02 Acute respiratory failure with hypercapnia; T82.42XA Displacement of vascular dialysis catheter, initial encounter; E87.2 Acidosis; E87.5 Hyperkalemia; I42.8 Other cardiomyopathies; I25.10 Atherosclerotic heart disease of native coronary artery without angina pectoris; Z66 Do not resuscitate; I48.0 Paroxysmal atrial fibrillation; E11.9 Type 2 diabetes mellitus without complications; F32.A Depression, unspecified; K21.9 Gastro-esophageal reflux disease without esophagitis; E11.22 Type 2 diabetes mellitus with diabetic chronic kidney disease; E78.5 Hyperlipidemia, unspecified; F17.210 Nicotine dependence, cigarettes, uncomplicated; F32.9 Major depressive disorder, single episode, unspecified; B96.89 Other specified bacterial agents as the cause of diseases classified elsewhere; I25.5 Ischemic cardiomyopathy; J44.9 Chronic obstructive pulmonary disease, unspecified; I46.9 Cardiac arrest, cause unspecified; D63.1 Anemia in chronic kidney disease; Y83.8 Other surgical procedures as the cause of abnormal reaction of the patient, or of later complication, without mention of misadventure at the time of the procedure; R53.81 Other malaise; Z80.8 Family history of malignant neoplasm of other organs or systems; Z79.4 Long term (current) use of insulin; Z82.49 Family history of ischemic heart disease and other diseases of the circulatory system; Z99.2 Dependence on renal dialysis; I25.2 Old myocardial infarction; Z86.73 Personal history of transient ischemic attack (TIA), and cerebral infarction without residual deficits; Z91.15 Patient's noncompliance with renal dialysis; Z95.810 Presence of automatic (implantable) cardiac defibrillator; Z98.61 Coronary angioplasty status; Z91.19 Patient's noncompliance with other medical treatment and regimen; Y92.89 Other specified places as the place of occurrence of the external cause
CPT/HCPCS: 36415; 36558; 36600; 71045; 76942; 80048; 80053; 80074; 80202; 82805; 82962; 83735; 83880; 84484; 85007; 85025; 85027; 85610; 85730; 87040; 87077; 87186; 87426; 90935; 93005; 94640; 94660; 96365; 96375; 97163; 99152; 99153; 99291; G0378; J1642; J1815; J2250; J2543; P9047; Q9967